=== PATIENT | female | born 1970 | race Caucasian/White ===

== ENCOUNTER 2016-07-13 22:03 | Emergency (ER) | payer BC ==
[2016-07-13] MEDS ORDERED: MORPHINE SULFATE 4 MG/ML SYRINGE IV STA (23:38)
[2016-07-13] MEDS ORDERED: KETOROLAC 30 MG/ML 1 ML VIAL IVP STA (23:38)
[2016-07-13] MEDS ORDERED: SODIUM CHLORIDE 0.9% 1,000 ML IV STA (23:38)
[2016-07-13] MEDS ORDERED: ONDANSETRON 4 MG/2 ML VIAL IVP STA (23:38)
--- NOTE | 2016-07-13 23:44 | ED ---
General Adult HPI - General Chief complaint: Back Pain/Injury Stated complaint: Rt Flank pain Time Seen by Provider: 07/13/16 23:24 Source: patient, RN notes reviewed Mode of arrival: ambulatory Limitations: no limitations - History of Present Illness Initial comments: 45-year-old female presents emergency Department chief complaint right flank pain. Patient patient states that it was sudden onset of pain. She states she did have a slight twinge right before. She states she was driving when it started. Patient states she's nausea no vomiting no diarrhea no constipation. Denies any dysuria or hematuria. Patient had no prior surgeries and denies any history kidney stones. Denies any chance pertinency. Denies chest pain or shortness breath. She states nothing seems to make it feel better or worse. Patient offers no other complaints at this time. Patient has NO KNOWN DRUG ALLERGIES. - Related Data Home Medications Medication Instructions Recorded Confirmed Levothyroxine Sodium [Synthroid] 150 mcg PO 07/13/16 Pravastatin Sodium [Pravachol] 80 mg PO DAILY 07/13/16 07/13/16 Previous Rx's Medication Instructions Recorded Cyclobenzaprine [Flexeril] 5 mg PO TID PRN #15 tablet 07/14/16 Hydrocodone/Acetaminophen [[place] 1 tab PO Q6HR PRN #15 tab 07/14/16 5-325] Allergies Allergy/AdvReac Type Severity Reaction Status Date / Time No Known Allergies Allergy Verified 07/13/16 22:40 Review of Systems ROS Statement: Those systems with pertinent positive or pertinent negative responses have been documented in the HPI. ROS Other: All systems not noted in ROS Statement are negative. Past Medical History Past Medical History: Thyroid Disorder History of Any Multi-Drug Resistant Organisms: None Reported Additional Past Surgical History / Comment(s): (L) breast biopsy x 2. Past Psychological History: No Psychological Hx Reported Smoking Status: Never smoker Past Alcohol Use History: None Reported Past Drug Use History: None Reported General Exam Limitations: no limitations General appearance: alert, in no apparent distress Head exam: Present: atraumatic, normocephalic, normal inspection Respiratory exam: Present: normal lung sounds bilaterally. Absent: respiratory distress, wheezes, rales, rhonchi, stridor Cardiovascular Exam: Present: regular rate, normal rhythm, normal heart sounds. Absent: systolic murmur, diastolic murmur, rubs, gallop, clicks GI/Abdominal exam: Present: soft, normal bowel sounds. Absent: distended, tenderness, guarding, rebound, rigid Back exam: Present: full ROM, tenderness (Mild tenderness mid back right side), CVA tenderness (R) (Mild). Absent: paraspinal tenderness, vertebral tenderness Neurological exam: Present: alert, oriented X3, CN II-XII intact Skin exam: Present: warm, dry, intact, normal color. Absent: rash Course Vital Signs 07/13/16 22:35 Temperature 99.2 F Pulse Rate 87 Respiratory 16 Rate Blood Pressure 132/91 O2 Sat by Pulse 99 Oximetry Medical Decision Making - Medical Decision Making 45-year-old female presented for right back, right flank pain. Patient's CT does not show an acute abnormality. Patient lab with normal. Patient does have hematuria most likely related to her menstrual cycle. Patient be discharged at this time. Her pain is related to muscle skeletal pain. - Lab Data Result diagrams: 07/14/16 00:01 07/14/16 00:01 Lab Results 07/14/16 07/14/16 07/14/16 Range/Units 00:01 00:01 00:01 WBC 10.9 H (3.8-10.6) k/uL RBC 4.50 (3.80-5.40) m/uL Hgb 13.7 (11.4-16.0) gm/dL Hct 41.6 (34.0-46.0) % MCV 92.4 (80.0-100.0) fL MCH 30.5 (25.0-35.0) pg MCHC 33.0 (31.0-37.0) g/dL RDW 12.5 (11.5-15.5) % Plt Count 186 (150-450) k/uL Neutrophils % 77 % Lymphocytes % 15 % Monocytes % 5 % Eosinophils % 2 % Basophils % 1 % Neutrophils # 8.4 H (1.3-7.7) k/uL Lymphocytes # 1.6 (1.0-4.8) k/uL Monocytes # 0.6 (0-1.0) k/uL Eosinophils # 0.2 (0-0.7) k/uL Basophils # 0.1 (0-0.2) k/uL Sodium 144 (137-145) mmol/L Potassium 4.0 (3.5-5.1) mmol/L Chloride 106 (98-107) mmol/L Carbon Dioxide 26 (22-30) mmol/L Anion Gap 12 mmol/L BUN 16 (7-17) mg/dL Creatinine 0.70 (0.52-1.04) mg/dL Est GFR (MDRD) Af Amer >60 (>60 ml/min/1.73 sqM) Est GFR (MDRD) Non-Af >60 (>60 ml/min/1.73 sqM) Glucose 111 H (74-99) mg/dL Calcium 9.8 (8.4-10.2) mg/dL Total Bilirubin 0.3 (0.2-1.3) mg/dL AST 21 (14-36) U/L ALT 29 (9-52) U/L Alkaline Phosphatase 82 (38-126) U/L Troponin I (0.000-0.034) ng/mL Total Protein 7.0 (6.3-8.2) g/dL Albumin 4.3 (3.5-5.0) g/dL Amylase 57 (30-110) U/L Lipase 142 (23-300) U/L Urine Color Urine Appearance (Clear) Urine pH (5.0-8.0) Ur Specific Iron (1.001-1.035) Urine Protein (Negative) Urine Glucose (UA) (Negative) Urine Ketones (Negative) Urine Blood (Negative) Urine Nitrate (Negative) Urine Bilirubin (Negative) Urine Urobilinogen (<2.0) mg/dL Ur Leukocyte Esterase (Negative) Urine RBC (0-5) /hpf Urine WBC (0-5) /hpf Ur Squamous Epith Cells (0-4) /hpf Urine Bacteria (None) /hpf Urine Mucus (None) /hpf Urine HCG, Qual Not Detected (Not Detectd) 07/14/16 07/14/16 Range/Units 00:01 00:01 WBC (3.8-10.6) k/uL RBC (3.80-5.40) m/uL Hgb (11.4-16.0) gm/dL Hct (34.0-46.0) % MCV (80.0-100.0) fL MCH (25.0-35.0) pg MCHC (31.0-37.0) g/dL RDW (11.5-15.5) % Plt Count (150-450) k/uL Neutrophils % % Lymphocytes % % Monocytes % % Eosinophils % % Basophils % % Neutrophils # (1.3-7.7) k/uL Lymphocytes # (1.0-4.8) k/uL Monocytes # (0-1.0) k/uL Eosinophils # (0-0.7) k/uL Basophils # (0-0.2) k/uL Sodium (137-145) mmol/L Potassium (3.5-5.1) mmol/L Chloride (98-107) mmol/L Carbon Dioxide (22-30) mmol/L Anion Gap mmol/L BUN (7-17) mg/dL Creatinine (0.52-1.04) mg/dL Est GFR (MDRD) Af Amer (>60 ml/min/1.73 sqM) Est GFR (MDRD) Non-Af (>60 ml/min/1.73 sqM) Glucose (74-99) mg/dL Calcium (8.4-10.2) mg/dL Total Bilirubin (0.2-1.3) mg/dL AST (14-36) U/L ALT (9-52) U/L Alkaline Phosphatase (38-126) U/L Troponin I <0.012 (0.000-0.034) ng/mL Total Protein (6.3-8.2) g/dL Albumin (3.5-5.0) g/dL Amylase (30-110) U/L Lipase (23-300) U/L Urine Color Yellow Urine Appearance Cloudy H (Clear) Urine pH 5.5 (5.0-8.0) Ur Specific Iron 1.020 (1.001-1.035) Urine Protein Trace H (Negative) Urine Glucose (UA) Negative (Negative) Urine Ketones Negative (Negative) Urine Blood Large H (Negative) Urine Nitrate Negative (Negative) Urine Bilirubin Negative (Negative) Urine Urobilinogen <2.0 (<2.0) mg/dL Ur Leukocyte Esterase Moderate H (Negative) Urine RBC >182 H (0-5) /hpf Urine WBC 34 H (0-5) /hpf Ur Squamous Epith Cells 5 H (0-4) /hpf Urine Bacteria Rare H (None) /hpf Urine Mucus Rare H (None) /hpf Urine HCG, Qual (Not Detectd) Disposition Clinical Impression: Right flank pain Disposition: HOME SELF-CARE Condition: Stable Instructions: Flank Pain (ED) Additional Instructions: Please return to the Emergency Department if symptoms worsen or any other concerns. Prescriptions: Cyclobenzaprine [Flexeril] 5 mg PO TID PRN #15 tablet PRN Reason: Muscle Spasm Hydrocodone/Acetaminophen [[place] 5-325] 1 tab PO Q6HR PRN #15 tab PRN Reason: Pain Time of Disposition: 01:37
[2016-07-14 00:15] LABS: Basophils # (A) 0.1 k/uL (0-0.2); Basophils % (A) 1 %; CH 31.2; CHCM 33.9; Eosinophils # (A) 0.2 k/uL (0-0.7); Eosinophils % (A) 2 %; HCT 41.6 % (34.0-46.0); HDW 2.38; HGB 13.7 gm/dL (11.4-16.0); Luc # (Auto) 0.07; Luc % (Auto) 1; Lymphocytes # (A) 1.6 k/uL (1.0-4.8); Lymphocytes % (A) 15 %; MCH 30.5 pg (25.0-35.0); MCV 92.4 fL (80.0-100.0); Mean Platelet Volume 9.1; Monocytes # (A) 0.6 k/uL (0-1.0); Monocytes % (A) 5 %; Neutrophils # (A) 8.4 k/uL (1.3-7.7); Neutrophils % (A) 77 %; RDW 12.5 % (11.5-15.5); WBC 10.9 k/uL (3.8-10.6); WBC (Perox) 10.86
[2016-07-14 00:21] LABS: Appearance,Urine Cloudy (Clear); Bacteria,Urine Rare /hpf; Bilirubin,Urine Negative (Negative); Glucose,Urine (UA) Negative (Negative); Ketones,Urine Negative (Negative); Leukocyte Esterase,Urine Moderate (Negative); Mucus,Urine Rare /hpf; Nitrite,Urine Negative (Negative); PH, Urine 5.5 (5.0-8.0); Particle Count 8506; Protein,Urine Trace (Negative); RBC,Urine >182 /hpf (0-5); Squamous Epithelial Cell,Urine 5 /hpf (0-4); UA Billing (MACRO vs. MICRO) MICRO; Urobilinogen,Urine <2.0 mg/dL (<2.0); WBC,Urine 34 /hpf (0-5)
[2016-07-14 00:24] LABS: ALT 29 U/L (9-52); AST 21 U/L (14-36); Alkaline Phosphatase 82 U/L (38-126); Amylase 57 U/L (30-110); Anion Gap 12 mmol/L; Blood Urea Nitrogen 16 mg/dL (7-17); Calcium 9.8 mg/dL (8.4-10.2); Carbon Dioxide 26 mmol/L (22-30); Chloride 106 mmol/L (98-107); Glucose 111 mg/dL (74-99); Non-African American GFR(MDRD) >60 (>60 ml/min/1.73 sqM); Sodium 144 mmol/L (137-145); Total Bilirubin 0.3 mg/dL (0.2-1.3)
--- NOTE | 2016-07-14 00:36 | XR ---
EXAMINATION TYPE: XR KUB DATE OF EXAM: 07/14/2016 12:30 AM COMPARISON: NONE HISTORY: Right flank pain TECHNIQUE: 2 views FINDINGS: Bowel gas pattern is normal. There is no sign of intestinal obstruction or pneumoperitoneum . Fecal pattern is normal. There are no pathologic calcifications over the kidneys. Bony structures a re intact. IMPRESSION: Nonacute abdomen.
--- NOTE | 2016-07-14 01:27 | CT ---
EXAMINATION TYPE: CT abdomen pelvis wo con DATE OF EXAM: 07/14/2016 12:57 AM COMPARISON: NONE HISTORY: right flank pain CT DLP: 446.30 mGycm Automated exposure control for dose reduction was used. TECHNIQUE: Helical acquisition of images was performed from the lung bases through the pelvis. FINDINGS: Lung bases are clear of consolidation. There is no pleural effusion. Heart size is normal. Liver appears normal. There are small calcified splenic granulomata. There is no sign of a pancreatic mass. Gallbladder appears normal. There is no adrenal mass. Kidneys have normal size. There is no re troperitoneal adenopathy. Ureters are not dilated. There is no hydronephrosis. Appendix appears trace l. I see no intestinal wall thickening. There are no dilated loops. Bladder distends smoothly. There is no sign of a pelvic mass. There is no ascites. There are a few diverticula in the transverse colon . IMPRESSION: NO RENAL STONE OR OBSTRUCTION. NORMAL APPENDIX. MINIMAL COLONIC DIVERTICULOSIS. NO SIGN OF ACUTE ABDO MEN AND PELVIS.
[2016-07-14 02:15] VITALS: BP 109/65; PULSE 72; RESP 18; TEMP 98.2
== END 2016-07-14 02:15 | disposition home or self-care (01) ==
LOC: EC 22:03
DX: R10.9 Unspecified abdominal pain (principal); E07.9 Disorder of thyroid, unspecified; Z79.899 Other long term (current) drug therapy
CPT/HCPCS: 99284; 96374; 96375 ×2; 96361; 36415; 93005; 80053; 82150; 83690; 84484; 85025; 81001; 81025; 74000; 74176; J2270; J2405; J1885

== ENCOUNTER 2016-07-14 19:20 | Inpatient (IN) | payer BC ==
--- NOTE | 2016-07-14 20:18 | ED ---
General Adult HPI <Cristian Pineda - Last Filed: 07/15/16 00:30> - General Source: patient, RN notes reviewed Mode of arrival: ambulatory Limitations: no limitations <Mirna Miranda - Last Filed: 07/15/16 01:28> - General Chief complaint: Abdominal Pain Stated complaint: Rt Flank Pain/revisit Time Seen by Provider: 07/14/16 20:03 - History of Present Illness Initial comments: 45 year old female presents with quadrant pain and shoulder pain 2 days. Patient states this started suddenly at 9 PM last night. Patient states she is treated in the [facility] yesterday for this and was diagnosed with muscle pain. Patient denies any vomiting or diarrhea but admits to some mild nausea. Patient complains of diminished appetite. Patient states the pain is worse with taking a deep breath. Patient states pain is worse with laying flat. Patient states the pain is so bad that she can hardly walk. Patient denies any past surgeries. Patient has been taking Osp[place] for pain but this has not helped. Patient denies any hematochezia, breath, hematemesis or constipation. Patient is currently on her menstrual cycle. Patient states nothing makes the pain better.Patient denies any recent fever, chills, shortness breath, chest pain, back pain, numbness, tingling, hematuria, headache, or visual changes, or any other complaints. (Mirna Miranda) - Related Data Home Medications Medication Instructions Recorded Confirmed Levothyroxine Sodium [Synthroid] 150 mcg PO DAILY 07/13/16 07/14/16 Pravastatin Sodium [Pravachol] 80 mg PO HS 07/13/16 07/14/16 Previous Rx's Medication Instructions Recorded Cyclobenzaprine [Flexeril] 5 mg PO TID PRN #15 tablet 07/14/16 Hydrocodone/Acetaminophen [[place] 1 tab PO Q6HR PRN #15 tab 07/14/16 5-325] Allergies Allergy/AdvReac Type Severity Reaction Status Date / Time No Known Allergies Allergy Verified 07/14/16 19:58 Review of Systems ROS Other: All systems not noted in ROS Statement are negative. <Cristian Pineda - Last Filed: 07/15/16 00:30> ROS Other: All systems not noted in ROS Statement are negative. <Mirna Miranda - Last Filed: 01/16/17 01:28> ROS Statement: Those systems with pertinent positive or pertinent negative responses have been documented in the HPI. Past Medical History Past Medical History: Thyroid Disorder History of Any Multi-Drug Resistant Organisms: None Reported Additional Past Surgical History / Comment(s): (L) breast biopsy x 2. Past Psychological History: No Psychological Hx Reported Smoking Status: Never smoker Past Alcohol Use History: None Reported Past Drug Use History: None Reported <Mirna Miranda - Last Filed: 07/15/16 01:28> General Exam <Cristian Pineda - Last Filed: 07/15/16 00:30> Limitations: no limitations <Mirna Miranda - Last Filed: 07/15/16 01:28> - General Exam Comments Initial Comments: General: The patient is awake and alert, in no distress, and does not appear acutely ill. Eye: Pupils are equal, round and reactive to light, extra-ocular movements are intact. No nystagmus. There is normal conjunctiva bilaterally. No signs of icterus. Ears: TMs pearly with intact cone light bilaterally. Nose: Turbinates pink and moist. Mouth and throat: There are moist mucous membranes and no oral lesions. Neck: The neck is supple, there is no tenderness or JVD. Cardiovascular: There is a regular rate and rhythm. No murmur, rub or gallop is appreciated. Respiratory: Lungs are clear to auscultation, respirations are non-labored, breath sounds are equal. No wheezes, stridor, rales, or rhonchi. Gastrointestinal: There is tender to palpation of the right upper quadrant, Soft , non-distended, abdomen without masses or organomegaly noted. There is no rebound or guarding present. No CVA tenderness. Bowel sounds are unremarkable. Musculoskeletal: There is serous with patient over the posterior and lateral aspects of the right side ribs, Normal ROM, Strength 5/5. Sensation intact. Radial pulses equal bilaterally 2+. Neurological: A&O x 3. CN II-XII intact, There are no obvious motor or sensory deficits. Coordination appears grossly intact. Speech is normal. Skin: Skin is warm and dry and no rashes or lesions are noted. Psychiatric: Cooperative, appropriate mood & affect, normal judgment. (Mirna Miranda) Course <Cristian Pineda - Last Filed: 07/15/16 00:30> <Mirna Miranda - Last Filed: 07/15/16 01:28> Vital Signs 07/14/16 07/14/16 07/14/16 19:29 22:00 23:31 Temperature 101.3 F H 100.6 F H 100.8 F H Pulse Rate 105 H 81 80 Respiratory 20 18 18 Rate Blood Pressure 124/82 118/64 125/59 O2 Sat by Pulse 94 L 93 L 94 L Oximetry 07/15/16 01:04 Temperature 98.3 F Pulse Rate 86 Respiratory 16 Rate Blood Pressure 150/77 O2 Sat by Pulse 98 Oximetry - Reevaluation(s) Reevaluation #1: 07/15/16 00:30 Patient reexamined and resting comfortably in bed. Patient is mild right upper quadrant tenderness to palpation. Patient has developed fever since last visit. Ultrasound with sludge. Case discussed with Dr. Reyes, who will admit for Dr. Esteves (Cristian Pineda) Medical Decision Making - Lab Data Result diagrams: 07/14/16 20:50 07/14/16 20:50 <Cristian Pineda - Last Filed: 07/15/16 00:30> - Lab Data Result diagrams: 07/14/16 20:50 07/14/16 20:50 <Mirna Miranda - Last Filed: 07/15/16 01:28> - Medical Decision Making This is a 45 year old female presents with right-sided back pain since 9 PM last night. On physical exam there is sinus with palpation of the right upper quadrant into the right side ribs. Chest x-ray was done and reviewed showing: Right basilar atelectasis. No gross heart failure. No pneumothorax seen. I see no rib fracture. Labs were done and reviewed. An ultrasound of the gallbladder was done and reviewed showing: Gallbladders arch. No gallstones or dilated ducts. Possible sludge noted. Reported by Dr. Mayberry. Discussed imaging and lab results with patient. Discussed case with attending physician Dr. Pineda who contacted Dr. Reyes. Patient will be admitted as an inpatient. (Mirna Miranda) - Lab Data Lab Results 07/14/16 07/14/16 07/14/16 Range/Units 20:50 20:50 20:50 WBC 10.9 H (3.8-10.6) k/uL RBC 4.21 (3.80-5.40) m/uL Hgb 13.0 (11.4-16.0) gm/dL Hct 39.3 (34.0-46.0) % MCV 93.2 (80.0-100.0) fL MCH 30.8 (25.0-35.0) pg MCHC 33.0 (31.0-37.0) g/dL RDW 12.5 (11.5-15.5) % Plt Count 159 (150-450) k/uL Neutrophils % 83 % Lymphocytes % 10 % Monocytes % 5 % Eosinophils % 0 % Basophils % 0 % Neutrophils # 9.1 H (1.3-7.7) k/uL Lymphocytes # 1.1 (1.0-4.8) k/uL Monocytes # 0.6 (0-1.0) k/uL Eosinophils # 0.1 (0-0.7) k/uL Basophils # 0.0 (0-0.2) k/uL ESR 36 H (0-20) mm/hr PT (9.0-12.0) sec INR (<1.1) APTT (22.0-30.0) sec D-Dimer (<0.60) mg/L FEU Sodium 139 (137-145) mmol/L Potassium 4.1 (3.5-5.1) mmol/L Chloride 104 (98-107) mmol/L Carbon Dioxide 25 (22-30) mmol/L Anion Gap 10 mmol/L BUN 11 (7-17) mg/dL Creatinine 0.80 (0.52-1.04) mg/dL Est GFR (MDRD) Af Amer >60 (>60 ml/min/1.73 sqM) Est GFR (MDRD) Non-Af >60 (>60 ml/min/1.73 sqM) Glucose 108 H (74-99) mg/dL Plasma Lactic Acid Manav 0.8 (0.7-2.0) mmol/L Calcium 9.1 (8.4-10.2) mg/dL Total Bilirubin 0.8 (0.2-1.3) mg/dL AST 20 (14-36) U/L ALT 30 (9-52) U/L Alkaline Phosphatase 84 (38-126) U/L Total Protein 6.8 (6.3-8.2) g/dL Albumin 4.2 (3.5-5.0) g/dL Amylase 31 (30-110) U/L Lipase 41 (23-300) U/L 07/14/16 07/14/16 Range/Units 20:50 20:50 WBC (3.8-10.6) k/uL RBC (3.80-5.40) m/uL Hgb (11.4-16.0) gm/dL Hct (34.0-46.0) % MCV (80.0-100.0) fL MCH (25.0-35.0) pg MCHC (31.0-37.0) g/dL RDW (11.5-15.5) % Plt Count (150-450) k/uL Neutrophils % % Lymphocytes % % Monocytes % % Eosinophils % % Basophils % % Neutrophils # (1.3-7.7) k/uL Lymphocytes # (1.0-4.8) k/uL Monocytes # (0-1.0) k/uL Eosinophils # (0-0.7) k/uL Basophils # (0-0.2) k/uL ESR (0-20) mm/hr PT 9.9 (9.0-12.0) sec INR 1.0 (<1.1) APTT 22.4 (22.0-30.0) sec D-Dimer 0.51 (<0.60) mg/L FEU Sodium (137-145) mmol/L Potassium (3.5-5.1) mmol/L Chloride (98-107) mmol/L Carbon Dioxide (22-30) mmol/L Anion Gap mmol/L BUN (7-17) mg/dL Creatinine (0.52-1.04) mg/dL Est GFR (MDRD) Af Amer (>60 ml/min/1.73 sqM) Est GFR (MDRD) Non-Af (>60 ml/min/1.73 sqM) Glucose (74-99) mg/dL Plasma Lactic Acid Manav (0.7-2.0) mmol/L Calcium (8.4-10.2) mg/dL Total Bilirubin (0.2-1.3) mg/dL AST (14-36) U/L ALT (9-52) U/L Alkaline Phosphatase (38-126) U/L Total Protein (6.3-8.2) g/dL Albumin (3.5-5.0) g/dL Amylase (30-110) U/L Lipase (23-300) U/L Disposition <Cristian Pineda - Last Filed: 07/15/16 00:30> Decision Time: 01:27 <Mirna Miranda - Last Filed: 07/15/16 01:28> Clinical Impression: Cholecystitis Disposition: ADMITTED IP TO THIS [facility] Referrals: Dakota Ocasio DO [Primary Care Provider] - 1-2 days
[2016-07-14] MEDS ORDERED: SODIUM CHLORIDE 0.9% 1,000 ML IV ONE (20:28)
[2016-07-14] MEDS ORDERED: HYDROmorphone 1 MG/ML 1 ML SYRINGE IVP STA ×2 (20:28→21:19)
[2016-07-14] MEDS ORDERED: ONDANSETRON 4 MG/2 ML VIAL IVP STA (20:59)
[2016-07-14 21:15] LABS: Basophils % (A) 0 %; CH 31.4; CHCM 33.8; Eosinophils # (A) 0.1 k/uL (0-0.7); Eosinophils % (A) 0 %; HCT 39.3 % (34.0-46.0); HDW 2.35; Luc # (Auto) 0.08; Luc % (Auto) 1; Lymphocytes # (A) 1.1 k/uL (1.0-4.8); Lymphocytes % (A) 10 %; MCH 30.8 pg (25.0-35.0); MCV 93.2 fL (80.0-100.0); Mean Platelet Volume 8.8; Monocytes # (A) 0.6 k/uL (0-1.0); Monocytes % (A) 5 %; Neutrophils # (A) 9.1 k/uL (1.3-7.7); Neutrophils % (A) 83 %; RBC 4.21 m/uL (3.80-5.40); RDW 12.5 % (11.5-15.5); WBC 10.9 k/uL (3.8-10.6); WBC (Perox) 11.28
--- NOTE | 2016-07-14 21:21 | XR ---
EXAMINATION TYPE: XR chest 2V DATE OF EXAM: 07/14/2016 9:07 PM COMPARISON: NONE HISTORY: Rib pain TECHNIQUE: Frontal and lateral views of the chest are obtained. FINDINGS: There is elevated right diaphragm there is linear density at the right lung base. There is no heart failure. Heart is probably enlarged. Bony thorax is intact. IMPRESSION: Right basilar atelectasis. No gross heart failure. No pneumothorax seen. I see no rib fr acture.
[2016-07-14 21:28] LABS: Partial Thromboplastin Time 22.4 sec (22.0-30.0); Prothrombin Time 9.9 sec (9.0-12.0)
[2016-07-14 21:39] LABS: ALT 30 U/L (9-52); AST 20 U/L (14-36); Alkaline Phosphatase 84 U/L (38-126); Amylase 31 U/L (30-110); Anion Gap 10 mmol/L; Blood Urea Nitrogen 11 mg/dL (7-17); Calcium 9.1 mg/dL (8.4-10.2); Carbon Dioxide 25 mmol/L (22-30); Chloride 104 mmol/L (98-107); Glucose 108 mg/dL (74-99); Non-African American GFR(MDRD) >60 (>60 ml/min/1.73 sqM); Potassium 4.1 mmol/L (3.5-5.1); Sodium 139 mmol/L (137-145); Total Bilirubin 0.8 mg/dL (0.2-1.3); Total Protein 6.8 g/dL (6.3-8.2)
[2016-07-14 22:01] LABS: Erythrocyte Sedimentation Rate 36 mm/hr (0-20)
--- NOTE | 2016-07-15 00:20 | US ---
EXAMINATION TYPE: US gallbladder DATE OF EXAM: 07/15/2016 12:02 AM COMPARISON: NONE CLINICAL HISTORY: US. Right flank pain EXAM MEASUREMENTS: Liver Length: 14.4cm Gallbladder Wall: 0.3cm CBD: 0.4cm Right Kidney: 10.2 x 4.3 x 3.9cm ANATOMY: TECHNOLOGIST IMPRESSION: *Extreme technical limitations due to large amount of overlying bowel dewayne nt Pancreas: Obscured by overlying bowel gas Liver: visualized portions appear wnl, best visualized intercostally Gallbladder: possible sludge noted Evidence for sonographic Thomson's sign: No CBD: appears wnl Right Kidney: no evidence of hydronephrosis IMPRESSION: Gallbladder is large. No gallstones or dilated ducts.
[2016-07-15] MEDS ORDERED: NALOXONE 0.4 MG/ML 1 ML VIAL IV PRN (01:21)
[2016-07-15] MEDS ORDERED: ONDANSETRON 4 MG/2 ML VIAL IVP PRN (01:21)
[2016-07-15] MEDS ORDERED: IBUPROFEN 400 MG TAB PO PRN (01:21)
[2016-07-15] MEDS ORDERED: ACETAMINOPHEN TAB 325 MG TAB PO PRN (01:21)
[2016-07-15] MEDS ORDERED: AMPICILLIN-SULBACTAM 3 GM in SODIUM CHLORIDE 0.9% 100 ML IVPB STA (01:23)
[2016-07-15] MEDS ORDERED: HYDROmorphone 1 MG/ML 1 ML SYRINGE IVP STA (01:26)
[2016-07-15] MEDS ORDERED: SODIUM CHLORIDE 0.9% 1,000 ML IV SCH (01:30)
[2016-07-15 02:59] VITALS: BMI 32.2
[2016-07-15] MEDS: HYDROmorphone 1 MG/ML 1 ML SYRINGE IV PRN ×3 (04:34→14:24)
[2016-07-15] MEDS ORDERED: ACETAMINOPHEN IV (For NPO) 1,000 MG in EMPTY BAG 1 BAG IVPB SCH (06:00)
[2016-07-15] MEDS: LEVOTHYROXINE 100 MCG TAB PO SCH (06:27)
[2016-07-15] MEDS: LEVOTHYROXINE 50 MCG TAB PO SCH (06:27)
[2016-07-15 08:28] LABS: Basophils % (A) 0 %; CHCM 32.5; Eosinophils % (A) 0 %; HCT 39.1 % (34.0-46.0); HDW 2.34; HGB 12.8 gm/dL (11.4-16.0); Luc % (Auto) 1; Lymphocytes # (A) 1.4 k/uL (1.0-4.8); Lymphocytes % (A) 14 %; MCH 31.4 pg (25.0-35.0); MCHC 32.8 g/dL (31.0-37.0); MCV 95.7 fL (80.0-100.0); Mean Platelet Volume 9.1; Monocytes # (A) 0.5 k/uL (0-1.0); Monocytes % (A) 5 %; Neutrophils # (A) 8.1 k/uL (1.3-7.7); Neutrophils % (A) 79 %; RBC 4.09 m/uL (3.80-5.40); RDW 12.6 % (11.5-15.5); WBC 10.3 k/uL (3.8-10.6); WBC (Perox) 10.71
[2016-07-15 08:57] LABS: ALT 30 U/L (9-52); AST 18 U/L (14-36); Alkaline Phosphatase 83 U/L (38-126); Anion Gap 11 mmol/L; Blood Urea Nitrogen 10 mg/dL (7-17); Calcium 8.7 mg/dL (8.4-10.2); Carbon Dioxide 22 mmol/L (22-30); Chloride 107 mmol/L (98-107); Glucose 106 mg/dL (74-99); Non-African American GFR(MDRD) >60 (>60 ml/min/1.73 sqM); Potassium 3.9 mmol/L (3.5-5.1); Sodium 140 mmol/L (137-145); Total Protein 6.8 g/dL (6.3-8.2)
--- NOTE | 2016-07-15 10:03 | P.GSHP ---
History of Present Illness H&P Date: 07/15/16 Chief Complaint: Right subcostal apin 45 yrs old female presentwd to ED with right subcosatl pain radiating to back for days. Sudden onset pain, not related to food. No urinary complaints. No fever, chills , rigors. Loss of appetite, nausea but no vomiting . She went to the ED on Friday and was discharged home. She returns to ED on Friday with similar episode of right subcostal pain radiating to her flank - Review of Systems Comment: Constitutional: Denies fever, weight loss or loss of appetite HEENT: No difficulty in vision or hearing. Denies dysphagia. Cardiovascular: Denies chest pain, palpitations, dizziness, shortness of breath. Respiratory: Denies cough or shortness of breath Gastrointestinal: As stated in history of present illness. Integumentary: No rashes or skin ulcers Genitourinary: No urinary incontinence, hematuria or dysuria Neurologic: No seizures, denies weakness in upper or lower extremities Past Medical History Past Medical History: Hyperlipidemia, Thyroid Disorder History of Any Multi-Drug Resistant Organisms: None Reported Additional Past Surgical History / Comment(s): (L) breast biopsy x 2. 15 years ago Past Anesthesia/Blood Transfusion Reactions: No Reported Reaction Past Psychological History: No Psychological Hx Reported Smoking Status: Former smoker Past Alcohol Use History: Rare Additional Past Alcohol Use History / Comment(s): onc or two drinks per year Past Drug Use History: None Reported - Past Family History Mother Family Medical History: Diabetes Mellitus, Hypertension, Pneumonia, Thyroid Disorder Additional Family Medical History / Comment(s): depression Father Family Medical History: Diabetes Mellitus Additional Family Medical History / Comment(s): open heart, heart attack, diverticulitis Medications and Allergies Home Medications Medication Instructions Recorded Confirmed Type Levothyroxine Sodium [Synthroid] 150 mcg PO DAILY 07/13/16 07/15/16 History Pravastatin Sodium [Pravachol] 80 mg PO HS 07/13/16 07/15/16 History ALPRAZolam [Xanax] 0.25 mg PO DAILY PRN 07/15/16 07/15/16 History Allergies Allergy/AdvReac Type Severity Reaction Status Date / Time No Known Allergies Allergy Verified 07/14/16 19:58 Surgical - Exam Vital Signs Temp Pulse Resp BP Pulse Ox 101.3 F H 105 H 20 124/82 94 L 07/14/16 19:29 07/14/16 19:29 07/14/16 19:29 07/14/16 19:29 07/14/16 19:29 General: Patient is alert and oriented to time, place and person and cooperative with exam. HEENT: No pallor, no icterus, Chest: Bilateral equal breath sounds present. No wheezes, no crackles. Cardiovascular: Regular rate and rhythm. Abdomen: Soft, tenderness in RUQ. No definite peritonitis. Integumentary:No active ulcers or discharge. Neurologic: Cranial nerves II-XII intact. Strength upper and lower extremities 5/5. No focal neurologic deficits. Gait is normal. Psychiatric: No anxiety or psychosis. Results - Labs 07/15/16 08:12 07/15/16 08:12 Abnormal Lab Results - Last 24 Hours (Table) 07/15/16 07/15/16 Range/Units 08:12 08:12 Neutrophils # 8.1 H (1.3-7.7) k/uL Glucose 106 H (74-99) mg/dL Diabetes panel 07/15/16 Range/Units 08:12 Sodium 140 (137-145) mmol/L Potassium 3.9 (3.5-5.1) mmol/L Chloride 107 (98-107) mmol/L Carbon Dioxide 22 (22-30) mmol/L BUN 10 (7-17) mg/dL Creatinine 0.71 (0.52-1.04) mg/dL Glucose 106 H (74-99) mg/dL Calcium 8.7 (8.4-10.2) mg/dL AST 18 (14-36) U/L ALT 30 (9-52) U/L Alkaline Phosphatase 83 (38-126) U/L Total Protein 6.8 (6.3-8.2) g/dL Albumin 3.8 (3.5-5.0) g/dL Calcium panel 07/15/16 Range/Units 08:12 Calcium 8.7 (8.4-10.2) mg/dL Albumin 3.8 (3.5-5.0) g/dL Pituitary panel 07/15/16 Range/Units 08:12 Sodium 140 (137-145) mmol/L Potassium 3.9 (3.5-5.1) mmol/L Chloride 107 (98-107) mmol/L Carbon Dioxide 22 (22-30) mmol/L BUN 10 (7-17) mg/dL Creatinine 0.71 (0.52-1.04) mg/dL Glucose 106 H (74-99) mg/dL Calcium 8.7 (8.4-10.2) mg/dL Adrenal panel 07/15/16 Range/Units 08:12 Sodium 140 (137-145) mmol/L Potassium 3.9 (3.5-5.1) mmol/L Chloride 107 (98-107) mmol/L Carbon Dioxide 22 (22-30) mmol/L BUN 10 (7-17) mg/dL Creatinine 0.71 (0.52-1.04) mg/dL Glucose 106 H (74-99) mg/dL Calcium 8.7 (8.4-10.2) mg/dL Total Bilirubin 1.0 (0.2-1.3) mg/dL AST 18 (14-36) U/L ALT 30 (9-52) U/L Alkaline Phosphatase 83 (38-126) U/L Total Protein 6.8 (6.3-8.2) g/dL Albumin 3.8 (3.5-5.0) g/dL - Imaging CT scan - abdomen: image reviewed US - kidney/bladder: image reviewed (CT scan and US reviewed with Dr. Snyder. CT -normal. US - ? sludge/limited study) Assessment and Plan (1) Right upper quadrant abdominal pain Status: Acute (2) Hypothyroidism Status: Acute Plan: 1. 45 yr old female with acute onset right subcostal pain 2. US - no definite signs of stones or scute cholecystitis 3. CCK HIDA . If abnormal, proceed with lap karla possible open 4. CBC, LFTS within normal limits 5. GI and DVT prophylaxis
[2016-07-15] MEDS ORDERED: ceFAZolin 2 GM in SODIUM CHLORIDE 0.9% 100 ML IVPB ONE (10:07)
[2016-07-15] MEDS: AMPICILLIN-SULBACTAM 1.5 GM in SODIUM CHLORIDE 0.9% 50 ML IVPB SCH ×3 (11:10→23:20)
[2016-07-15] MEDS: HEPARIN SODIUM,PORCINE 5,000 UNIT/ML 1 ML VIAL SQ SCH ×2 (11:18→17:09)
--- NOTE | 2016-07-15 11:46 | NM ---
EXAMINATION TYPE: NM hepatobiliary w CCK DATE OF EXAM: 07/15/2016 11:06 AM COMPARISON: Ultrasound gallbladder 14 July 2016 HISTORY: Right upper quadrant pain TECHNIQUE: After the intravenous administration of 5.5 mCi Tc 99m Mebrofenin hepatobiliary scintigrap hy is performed. Immediate images post injection. FINDINGS: There is satisfactory initial accumulation of tracer by the liver. The gallbladder is visualized wit hin 10 minutes. The small bowel activity is noted within 8 minutes. At one hour CCK was administere d, patient was injected with 1.6 mcg of Kinevac, and gallbladder ejection fraction is calculated at 4 8 %, in the normal range. Therefore there is no scintigraphic evidence of cystic or common bile duct obstruction to suggest acute cholecystitis or gallbladder dyskinesia. IMPRESSION: Exam is within normal limits.
[2016-07-15] MEDS: ACETAMINOPHEN IV (For NPO) 1,000 MG in EMPTY BAG 1 BAG IVPB SCH ×3 (11:48→18:23)
[2016-07-15 12:39] LABS: Appearance,Urine Cloudy (Clear); Bilirubin,Urine Negative (Negative); Glucose,Urine (UA) Negative (Negative); Ketones,Urine 1+ (Negative); Leukocyte Esterase,Urine Negative (Negative); Mucus,Urine Moderate /hpf; Nitrite,Urine Negative (Negative); PH, Urine 5.5 (5.0-8.0); Particle Count 15386; Protein,Urine 1+ (Negative); RBC,Urine 113 /hpf (0-5); Specific Gravity,Urine 1.036 (1.001-1.035); Squamous Epithelial Cell,Urine 21 /hpf (0-4); UA Billing (MACRO vs. MICRO) MICRO; Urobilinogen,Urine <2.0 mg/dL (<2.0); WBC,Urine 8 /hpf (0-5)
[2016-07-15] MEDS: CYCLOBENZAPRINE 5 MG TAB PO PRN (15:20)
[2016-07-15] MEDS: SODIUM CHLORIDE 0.9% 1,000 ML IV SCH (16:37)
[2016-07-15] MEDS: PRAVASTATIN SODIUM 80 MG TAB PO SCH (21:18)
[2016-07-16] MEDS: HYDROcodone/APAP 5-325MG 1 EACH TAB PO PRN ×2 (00:14→04:13)
[2016-07-16] MEDS: HEPARIN SODIUM,PORCINE 5,000 UNIT/ML 1 ML VIAL SQ SCH ×3 (00:17→16:03)
[2016-07-16] MEDS: SODIUM CHLORIDE 0.9% 1,000 ML IV SCH ×2 (01:48→10:23)
[2016-07-16] MEDS: AMPICILLIN-SULBACTAM 1.5 GM in SODIUM CHLORIDE 0.9% 50 ML IVPB SCH ×3 (04:57→12:02)
[2016-07-16] MEDS: ACETAMINOPHEN IV (For NPO) 1,000 MG in EMPTY BAG 1 BAG IVPB SCH ×2 (05:23→11:13)
[2016-07-16 05:56] LABS: Basophils % (A) 0 %; CH 30.8; CHCM 32.4; Eosinophils # (A) 0.1 k/uL (0-0.7); Eosinophils % (A) 1 %; HCT 37.1 % (34.0-46.0); HDW 2.35; HGB 11.7 gm/dL (11.4-16.0); Luc # (Auto) 0.09; Luc % (Auto) 1; Lymphocytes # (A) 1.2 k/uL (1.0-4.8); Lymphocytes % (A) 13 %; MCH 30.1 pg (25.0-35.0); MCHC 31.4 g/dL (31.0-37.0); MCV 95.6 fL (80.0-100.0); Mean Platelet Volume 7.9; Monocytes # (A) 0.4 k/uL (0-1.0); Monocytes % (A) 5 %; Neutrophils # (A) 7.3 k/uL (1.3-7.7); Neutrophils % (A) 80 %; RBC 3.88 m/uL (3.80-5.40); RDW 12.3 % (11.5-15.5); WBC (Perox) 9.87
[2016-07-16 06:05] LABS: ALT 32 U/L (9-52); AST 18 U/L (14-36); Alkaline Phosphatase 85 U/L (38-126); Anion Gap 9 mmol/L; Blood Urea Nitrogen 9 mg/dL (7-17); Calcium 8.2 mg/dL (8.4-10.2); Carbon Dioxide 27 mmol/L (22-30); Chloride 105 mmol/L (98-107); Glucose 106 mg/dL (74-99); Non-African American GFR(MDRD) >60 (>60 ml/min/1.73 sqM); Potassium 3.7 mmol/L (3.5-5.1); Sodium 141 mmol/L (137-145); Total Bilirubin 0.6 mg/dL (0.2-1.3); Total Protein 5.7 g/dL (6.3-8.2)
[2016-07-16] MEDS: LEVOTHYROXINE 100 MCG TAB PO SCH (06:21)
[2016-07-16] MEDS: LEVOTHYROXINE 50 MCG TAB PO SCH (06:21)
[2016-07-16] MEDS: CYCLOBENZAPRINE 5 MG TAB PO PRN (08:30)
[2016-07-16] MEDS ORDERED: SCOPOLAMINE 1.5MG/72HR PATCH TRANSDERM SCH (10:30)
[2016-07-16] MEDS ORDERED: RX INFO: IV CONTRAST WAS GIVEN 1 EACH MISC MISCELLANE PRN (14:10)
--- NOTE | 2016-07-16 15:49 | P.PN ---
Subjective 45 show female ambulating in the room. Patient continues to report having right lateral chest wall discomfort. Patient states it hurts to take in a deep breath. There are dry crackles posterior at the bases. No cough noted. Did note patient's attempted maxed 100.8. Current temp is 98.1. Chest x-ray done on the show right basal atelectasis noted. Nursing reports patient is able to use the incentive spirometer particularly achieving 500 currently on 2 L sats are 93% Objective - Vital Signs Vital signs: Vital Signs Temp 98.1 F 07/16/16 11:15 Pulse 104 H 07/16/16 11:15 Resp 16 07/16/16 11:15 BP 120/73 07/16/16 11:15 Pulse Ox 93 L 07/16/16 11:15 Intake & Output 07/15/16 07/16/16 07/16/16 18:59 06:59 18:59 Intake Total 360 520 500 Balance 360 520 500 Intake: Oral 360 520 500 Other: Voiding Method Toilet # Voids 4 1 - Exam Physical exam 45-year-old female ambulating in the room reports having right lateral chest wall discomfort pleasant oriented 3 Lungs posterior dry crackles bilaterally at the bases not able to appreciate any wheezing no cough noted Heart S1-S2 audible and regular no murmur noted denying chest pain Abdomen soft nontender reports no nausea vomiting Extremities no edema noted no calf Tenderness - Labs CBC & Chem 7: 07/16/16 05:27 07/16/16 05:27 Labs: Abnormal Lab Results - Last 24 Hours (Table) 07/16/16 Range/Units 05:27 Glucose 106 H (74-99) mg/dL Calcium 8.2 L (8.4-10.2) mg/dL Total Protein 5.7 L (6.3-8.2) g/dL Albumin 3.3 L (3.5-5.0) g/dL Microbiology - Last 24 Hours (Table) 07/15/16 12:05 Urine Culture - Preliminary Urine,Clean Catch Assessment and Plan Plan: Impression Right lateral chest wall pain unclear etiology Present on admission right upper quadrant abdominal pain with a negative HIDA scan Hypothyroid on supplements Plan CAT scan chest rule out pulmonary emboli DVT and GI prophylaxis No surgical intervention warranted at this time the right upper quadrant abdominal pain IV hydration as ordered Encouraged the use of the incentive spirometer use every 1 hour while awake Continue aerosol bronchodilators as ordered Further recommendations pending will follow The above dictated assessment and findings were discussed with sang . Impression and the plan of care have been dictated as directed. Silvia Vega nurse practitioner acting as a scribe for dr domínguez
[2016-07-16] MEDS: KETOROLAC 30 MG/ML 1 ML VIAL IVP PRN ×2 (16:02→21:52)
--- NOTE | 2016-07-16 16:20 | CT ---
CT CHEST FOR PULMONARY EMBOLISM. EXAMINATION TYPE: CT angio chest DATE OF EXAM: 07/16/2016 3:17 PM INDICATION: Pt states of SOB. CT DLP: 316.3 mGycm, Automated exposure control for dose reduction was used. CONTRAST: Patient injected with 65 mL of Omnipaque 350. COMPARISON: NONE TECHNIQUE: CT of the chest is performed on a spiral scan at 2 mm thick sections. Study is performed with intravenous contrast timed for evaluation for pulmonary embolism. This will limit additional po rtions of the evaluation. 3-D MIP images reconstructed by the technologist are reviewed on the compu ter in the coronal and sagittal planes. FINDINGS: No persistent filling defects are evident to suggest an acute pulmonary embolism. No mediastinal or hilar adenopathy enlarged by CT criteria is evident. The ascending aorta diameter at the level of the main pulmonary artery is 3.3 cm. The main pulmonary artery diameter at the bifur cation is 2.8 cm. Patchy areas of pneumonitis at the apices. There is loculated effusion on the right. There is a right middle lobe consolidation. This could be atelectasis or pneumonia. Right lower lobe atelectasis is l ikely present. Consolidation is at the left base. Atelectasis should be considered. Underlying mass i s not excluded. Follow-up examinations are recommended. Limited CT section through the upper abdomen are unremarkable. IMPRESSIONS: 1. No acute pulmonary embolism. 2. Right middle and right lower lobe consolidations and a smaller left lower lobe consolidation. Sherif elate for atelectasis and pneumonia. Masses are not excluded. Follow-up is recommended.
[2016-07-16] MEDS: AZITHROMYCIN 500 MG TAB PO SCH (16:39)
[2016-07-16] MEDS: IPRATROPIUM-ALBUTEROL 3 ML NEB INHALATION SCH ×2 (17:17→20:45)
--- NOTE | 2016-07-16 17:27 | CONS ---
DATE OF CONSULTATION: REASON FOR CONSULTATION: Take over medical service. The patient is a 45-year-old female came in with right subcostal pain. Patient had a d-dimer on admission which was negative. Because of this, patient was admitted for possibly acute cholecystitis and surgical service and although the patient ultrasound is not improved significantly, because of which surgery obtained HIDA scan which was negative. Patient when she came in had fevers. Denied any flulike symptoms. Denied any dysuria. Denied any nausea, vomiting, abdominal pain. Denied any nausea, vomiting. Patient does have lower chest pain, pleuritic in nature associated with some shortness of breath. Denied any orthopnea, PND. Patient does have diffuse crackles of the right lung lobes and chest x-ray on admission is not impressive and patient has constant pleuritic pain about 7/10 in severity, nonradiating, the patient's pain is not associated with diaphoresis. It is a constant pain, because of which I am obtaining a CT scan of the chest to rule out pulmonary embolism or any pneumonic process. Patient may have pleurisy of the differential. REVIEW OF SYSTEMS: CONSTITUTIONAL: No fever, no malaise, no fatigue. HEENT: No recent visual problems or hearing problems. Denied any sore throat. CARDIOVASCULAR: As described in HPI. PULMONARY: As described in HPI. GASTROINTESTINAL: As described in HPI. NEUROLOGICAL: No headaches, no weakness, no numbness. HEMATOLOGICAL: Denies any bleeding or petechiae. GENITOURINARY: Denies any burning micturition, frequency, or urgency. MUSCULOSKELETAL/RHEUMATOLOGICAL: Denies any joint pain, swelling, or any muscle pain. ENDOCRINE: Denies any polyuria or polydipsia. The rest of the 14 point review of systems is negative. PAST MEDICAL HISTORY: Hyperlipidemia, hypothyroidism. SOCIAL HISTORY: Former smoker. Occasional alcohol use. Denied any drug abuse. FAMILY HISTORY: Mother had diabetes mellitus, hypertension, pneumonia, hypothyroidism. Father had diabetes mellitus and recent heart attack at 70 years of age, diverticulitis, Home medications include: 1. Levothyroxine. 2. Pravastatin. 3. Xanax. ALLERGIES: No known drug allergies. PHYSICAL EXAMINATION: VITAL SIGNS: Temperature 98.1, pulse of 104, respiratory rate of 16, blood pressure is 120/73. Saturating at 93% on 2 liters O2 by nasal cannula. GENERAL: The patient is alert and oriented x3, not in any acute distress. Well developed, well nourished. HEENT: Pupils are round and equally reacting to light. EOMI. No scleral icterus. No conjunctival pallor. Normocephalic, atraumatic. No pharyngeal erythema. No thyromegaly. CARDIOVASCULAR: S1 and S2 present. No murmurs, rubs, or gallops. PULMONARY: Patient does have diffuse crackles particularly in the right lower lung peck posteriorly and there is suspicious bronchophony and egophony in the right lower lung peck. ABDOMEN: Soft, nontender, nondistended, normoactive bowel sounds. No palpable organomegaly. MUSCULOSKELETAL: No joint swelling or deformity. EXTREMITIES: No cyanosis, clubbing, or pedal edema. NEUROLOGICAL: Gross neurological examination did not reveal any focal deficits. SKIN: No rashes. LABORATORY DATA: CBC, CMP are abnormal for elevated WBC count when she came to the hospital. Patient was febrile when she came in. ASSESSMENT AND PLAN: 1. Right-sided pleuritic chest pain. Patient does not appear to have cholecystitis clinically or radiologically. Patient's differential for chest pain with fever include: Pneumonia parapneumonic effusion and pleurisy and other differential being pulmonary embolism although her d-dimer is negative. We will order a CT of the chest to rule out any pulmonary embolism or any pneumonic process that I can see. Although patient does not have any significant cough. 2. Hyperthyroidism. 3. Hyperlipidemia for which I will go ahead and continue her home medications. 4. Patient does have diffuse crackles. Patient has questionable bronchophony egophony on exam which I failed to dictate earlier.
[2016-07-16] MEDS: DOCUSATE 100 MG CAP PO SCH (20:56)
[2016-07-16] MEDS: PRAVASTATIN SODIUM 80 MG TAB PO SCH (20:56)
[2016-07-17] MEDS: HEPARIN SODIUM,PORCINE 5,000 UNIT/ML 1 ML VIAL SQ SCH ×4 (00:24→23:17)
[2016-07-17] MEDS: HYDROcodone/APAP 5-325MG 1 EACH TAB PO PRN ×2 (00:25→20:47)
[2016-07-17] MEDS: LEVOTHYROXINE 100 MCG TAB PO SCH (06:43)
[2016-07-17] MEDS: LEVOTHYROXINE 50 MCG TAB PO SCH (06:43)
[2016-07-17] MEDS: KETOROLAC 30 MG/ML 1 ML VIAL IVP PRN ×3 (08:46→23:19)
[2016-07-17] MEDS: AZITHROMYCIN 500 MG TAB PO SCH (08:51)
[2016-07-17] MEDS: IPRATROPIUM-ALBUTEROL 3 ML NEB INHALATION SCH ×4 (09:13→19:27)
[2016-07-17] MEDS: DOCUSATE 100 MG CAP PO SCH ×2 (09:51→20:43)
--- NOTE | 2016-07-17 17:08 | P.PN ---
Subjective Date of service 07/17/2016. Progress note being dictated for Dr. Harkins. Interval history: This a 45-year-old female admitted with acute right-sided pleuritic chest pain, right-sided pneumonia, and multiple other medical issues. CT negative for PE, reports right middle lobe consolidation with loculated effusion on the right, possible atelectasis or pneumonia, underlying mass not excluded. Maintained on nebulized bronchodilators, antibiotics with breathing improved. Ambulating, tolerating increase in exertion better today.Tmax 100.4. Weaned off oxygen and maintaining O2 sats of 97% on room air. Objective - Vital Signs Vital signs: Vital Signs Temp 98.8 F 07/17/16 12:20 Pulse 88 07/17/16 13:09 Resp 20 07/17/16 12:20 BP 125/77 07/17/16 12:20 Pulse Ox 97 07/17/16 12:20 Intake & Output 07/16/16 07/17/16 07/17/16 18:59 06:59 18:59 Intake Total 500 Balance 500 Intake: Oral 500 - Exam PHYSICAL EXAM: VITAL SIGNS: As above GENERAL: [Sitting up in bed, no acute distress] HEENT: [Pupils equal conjunctiva normal.] NECK: [Supple, no JVD] RESPIRATORY EFFORT:[Normal] LUNGS: [Diminished, right basilar bronchophony ,fine crackles,] CARDIOVASCULAR[regular S1 and S2, no edema] GI: [Abdomen soft, nontender, positive bowel sounds.] PSYCH: [Alert and oriented -3, mood and affect normal.] NEURO: No focal deficits, was a 4 extremities, strength and sensation grossly intact - Labs CBC & Chem 7: 07/16/16 05:27 07/16/16 05:27 Labs: Microbiology - Last 24 Hours (Table) 07/15/16 12:05 Urine Culture - Final Urine,Clean Catch 07/15/16 16:15 Blood Culture - Preliminary Blood No Growth after 24 hours Assessment and Plan Plan: 1. Right-sided pleuritic chest pain with fever, related to right-sided pneumonia, right loculated effusion, possible underlying mass per CT. 2. [Atelectasis, right lower lobe]. 3. [PE ruled out]. 4. [Hyperthyroidism]. 5. [Hyperlipidemia]. Plan: Continue on current medication regime ,monitoring and symptomatic treatment. Maintain IV antibiotics for another 24 hours. Discharge planning in progress, pending afebrile 24 hours. Increase ambulation as tolerated. Aggressive pulmonary toileting with IS every hour 10, reinforced. Further recommendations to follow. The impression and plan of care has been dictated as directed. : I performed a H&P examination of this patient and discussed the same with the dictator. I agree with the dictator's note. Any additional findings/opinions/ etc. will be noted.
[2016-07-17] MEDS: PRAVASTATIN SODIUM 80 MG TAB PO SCH (20:43)
[2016-07-18] MEDS: HYDROcodone/APAP 5-325MG 1 EACH TAB PO PRN ×2 (06:45→20:39)
[2016-07-18] MEDS: LEVOTHYROXINE 100 MCG TAB PO SCH (06:46)
[2016-07-18] MEDS: LEVOTHYROXINE 50 MCG TAB PO SCH (06:46)
[2016-07-18] MEDS: IPRATROPIUM-ALBUTEROL 3 ML NEB INHALATION SCH ×4 (07:27→19:10)
[2016-07-18] MEDS: HEPARIN SODIUM,PORCINE 5,000 UNIT/ML 1 ML VIAL SQ SCH ×2 (08:30→17:00)
[2016-07-18] MEDS: DOCUSATE 100 MG CAP PO SCH ×3 (08:30→20:37)
[2016-07-18] MEDS: AZITHROMYCIN 500 MG TAB PO SCH (08:31)
[2016-07-18] MEDS ORDERED: methylPREDNISolone SOD SUCCI 125 MG/2 ML VIAL IV SCH ×2 (12:45→18:00)
--- NOTE | 2016-07-18 14:11 | P.CNPUL ---
History of Present Illness Consult date: 07/18/16 Requesting physician: Janet Harkins Reason for consult: abnormal CXR/CT Chief complaint: Right upper quadrant/rib pain History of present illness: This is a very pleasant 45-year-old female patient who follows with Dr. Ocasio as her primary care physician and has a past medical history of hypothyroidism and hyperlipidemia. She presented here on 07/14/2016 with complaints of right sided chest pain. She was seen initially in the emergency room on 07/13/16 with similar complaints was told it was a muscle pull/strain. The pain continued to worsen and she returned to the emergency room the next day. There is some mild right upper quadrant tenderness and she was admitted to the surgical group after an ultrasound revealed enlarged gallbladder with sludge. A hepatobiliary scan was performed which was within normal limits and no surgical intervention was planned. Subsequently a CT angiogram was done on 07/16/2016 and a pulmonary embolism was ruled out. However there was noted right middle and right lower lobe consolidations with a smaller left lower lobe consolidation and we are consulted today 07/18/2016 for the same. She has no previous pulmonary issues. She is a lifelong nonsmoker. No asthma. She denied any prior symptoms of pneumonia. No previous pneumonias. No cough or congestion. No real fever chills or night sweats. She denied any trauma to the chest wall. She is currently afebrile. She is maintaining good O2 saturations in the upper 90s on 2 L/m per nasal cannula. Hemodynamically stable. No elevated white count. Review of Systems 14 point review of system was conducted. All negative other than as mentioned in HPI. Past Medical History Past Medical History: Hyperlipidemia, Thyroid Disorder History of Any Multi-Drug Resistant Organisms: None Reported Additional Past Surgical History / Comment(s): (L) breast biopsy x 2. 15 years ago Past Anesthesia/Blood Transfusion Reactions: No Reported Reaction Past Psychological History: No Psychological Hx Reported Smoking Status: Former smoker Past Alcohol Use History: Rare Additional Past Alcohol Use History / Comment(s): onc or two drinks per year Past Drug Use History: None Reported - Past Family History Mother Family Medical History: Diabetes Mellitus, Hypertension, Pneumonia, Thyroid Disorder Additional Family Medical History / Comment(s): depression Father Family Medical History: Diabetes Mellitus Additional Family Medical History / Comment(s): open heart, heart attack, diverticulitis Medications and Allergies Home Medications Medication Instructions Recorded Confirmed Type Levothyroxine Sodium [Synthroid] 150 mcg PO DAILY 07/13/16 07/15/16 History Pravastatin Sodium [Pravachol] 80 mg PO HS 07/13/16 07/15/16 History ALPRAZolam [Xanax] 0.25 mg PO DAILY PRN 07/15/16 07/15/16 History Allergies Allergy/AdvReac Type Severity Reaction Status Date / Time No Known Allergies Allergy Verified 07/14/16 19:58 Physical Exam Vitals: Vital Signs Temp Pulse Pulse Resp BP Pulse Ox 07/18/16 12:55 97.2 F L 82 20 135/80 96 07/18/16 11:21 76 07/18/16 11:13 72 07/18/16 07:55 98.4 F 97 20 148/70 94 L 07/18/16 07:40 76 07/18/16 07:29 76 93 L 07/17/16 23:23 97.4 F L 77 20 125/80 93 L 07/17/16 20:00 22 07/17/16 19:37 80 07/17/16 19:28 79 94 L 07/17/16 19:25 99.0 F 79 19 127/71 94 L 07/17/16 16:54 100.6 F H 90 20 128/75 96 Intake and Output 07/17/16 07/18/16 07/18/16 22:59 06:59 14:59 Intake Total 200 Balance 200 Intake: Oral 200 Other: Voiding Method Toilet GENERAL EXAM: Alert, active, comfortable in no apparent distress. HEAD: Normocephalic. EYES: Normal reaction of pupils, equal size. NOSE: Clear with pink turbinates. THROAT: No erythema or exudates. NECK: No masses, no JVD. CHEST: No chest wall deformity. LUNGS: Equal air entry with crackles in the right posterior base. Diminished. CVS: S1 and S2 normal with no audible murmurs, regular rhythm. ABDOMEN: No hepatosplenomegaly, normal bowel sounds, no guarding or rigidity. SPINE: No scoliosis or deformity SKIN: No rashes CENTRAL NERVOUS SYSTEM: No focal deficits, tone is normal in all 4 extremities. Extremities: There is no significant peripheral edema. No clubbing, no cyanosis. Peripheral pulses are intact. Results - Laboratory Findings CBC and BMP: 07/16/16 05:27 07/16/16 05:27 PT/INR, D-dimer PT 9.9 sec (9.0-12.0) 07/14/16 20:50 INR 1.0 (<1.1) 07/14/16 20:50 D-Dimer 0.51 mg/L FEU (<0.60) 07/14/16 20:50 Abnormal lab findings: Abnormal Labs 07/15/16 07/15/16 07/15/16 08:12 08:12 12:05 Neutrophils # 8.1 H Glucose 106 H Calcium Total Protein Albumin Urine Appearance Cloudy H Ur Specific [place] 1.036 H Urine Protein 1+ H Urine Ketones 1+ H Urine Blood Large H Urine RBC 113 H Urine WBC 8 H Ur Squamous Epith Cells 21 H Urine Mucus Moderate H 07/16/16 05:27 Neutrophils # Glucose 106 H Calcium 8.2 L Total Protein 5.7 L Albumin 3.3 L Urine Appearance Ur Specific [place] Urine Protein Urine Ketones Urine Blood Urine RBC Urine WBC Ur Squamous Epith Cells Urine Mucus - Diagnostic Findings Chest x-ray: image reviewed CT scan - chest: image reviewed Assessment and Plan Plan: Impression: #1 Right upper quadrant/chest pain. Cholecystitis and pancreatitis ruled out. Computed tomography scan of the chest ruled out pulmonary embolism. There is a large right-sided pleural effusion somewhat loculated, right middle lobe consolidation and right lower lobe atelectasis. There is also some noted consolidation of the left base. #2 Hyperlipidemia. #3 Hypothyroidism. Plan: The patient was seen and evaluated by Dr. Abdul. Her chest x-ray, CAT scans and labs were reviewed. We did order an ultrasound of the right chest which did not reveal a significant amount of free flowing fluid. The patient is improving clinically. We'll hold off on thoracentesis or bronchoscopy for now. We'll reevaluate her in the a.m. We'll repeat her chest x-ray then. We'll also give 2 doses of IV Solu-Medrol to help control the inflammatory pain. We' ll continue with her current antibiotics in the form of ceftriaxone and azithromycin. She is on DuoNeb inhalations 4 times a day and when necessary. We'll continue to follow and make further recommendations based on her clinical status. Time with Patient: Greater than 30
--- NOTE | 2016-07-18 14:12 | US ---
EXAMINATION TYPE: US chest DATE OF EXAM: 07/18/2016 12:27 PM COMPARISON: CT chest 16 July 2016 CLINICAL HISTORY: rt pleural effusion and pleurisy. EXAM MEASUREMENTS: TECHNOLOGIST IMPRESSION: Right Pleural Effusion fluid pocket: 3.2 cm, possible solid component to fluid, anterior area appear s hypoechoic not anechoic. Right skin to fluid thickness: 4.5 cm Right side marked for possible thoracentesis outside the dept. Pulmonologists are able to review the images in the patient?s EMR. Pleural effusion is present in the posterior right chest. There is associated atelectasis. IMPRESSIONS: Right pleural effusion
[2016-07-18] MEDS: KETOROLAC 30 MG/ML 1 ML VIAL IVP PRN (14:32)
--- NOTE | 2016-07-18 17:03 | P.PN ---
Subjective Date of service 07/18/2016. Progress note being dictated for Dr. Restrepo. Interval history: This a 45-year-old female admitted with acute right-sided pleuritic chest pain, right-sided pneumonia, large right sided loculated pleural effusion, right middle lobe consolidation, atelectasis and multiple other medical issues. Chest Ultrasound performed today and did not reveal enough fluid for thoracentesis.Evaluated by a pulmonary, recommendations noted. Maintained on nebulized bronchodilators, Rocephin, azithromycin, steroids with breathing improved. Tmax 100.6. Yesterday nasal cannula O2 at the weaned off, today maintaining O2 sats of 96% on 2 L nasal cannula. Review of systems: HEENT: Denies headache or focal deficits. Denies any dizziness or lightheadedness. Respiratory: Mild increase in shortness of breath with exertion, improving Cardiac: Denies any chest pain, palpitations. GI: Denies any nausea, vomiting, or diarrhea. Denies any abdominal tenderness. : Denies any dysuria. Psychiatry: Denies any anxiety or depression. Active Medications Acetaminophen/Hydrocodone Bitart ([place] 5-325) 1 each PO Q4HR PRN PRN Reason: Moderate Pain Last Admin: 07/18/16 06:45 Dose: 1 each Albuterol/Ipratropium (Duoneb 0.5 Mg-3 Mg/3 Ml Soln) 3 ml INHALATION RT-QID [facility] Last Admin: 07/18/16 15:39 Dose: 3 ml Azithromycin (Zithromax) 500 mg PO DAILY [facility] Last Admin: 07/18/16 08:31 Dose: 500 mg Cyclobenzaprine HCl (Flexeril) 5 mg PO TID PRN PRN Reason: Muscle Spasm Last Admin: 07/16/16 08:30 Dose: 5 mg Docusate Sodium (Colace) 100 mg PO BID [facility] Last Admin: 07/18/16 08:32 Dose: Not Given Heparin Sodium (Porcine) (Heparin) 5,000 unit SQ Q8HR [facility] Last Admin: 07/18/16 08:30 Dose: 5,000 unit Ceftriaxone Sodium 1,000 mg/ (Sodium Chloride) 50 mls @ 100 mls/hr IVPB Q24HR [facility] Last Admin: 07/18/16 08:30 Dose: 100 mls/hr Levothyroxine Sodium (Synthroid) 100 mcg PO 0630 [facility] Last Admin: 07/18/16 06:46 Dose: 100 mcg Levothyroxine Sodium (Synthroid) 50 mcg PO 0630 [facility] Last Admin: 07/18/16 06:46 Dose: 50 mcg Methylprednisolone Sodium Succinate (Solu-Medrol) 60 mg IV Q6HR [facility] Naloxone HCl (Narcan) 0.2 mg IV Q2M PRN PRN Reason: Opioid Reversal Ondansetron HCl (Zofran) 4 mg IVP Q8HR PRN PRN Reason: Nausea And Vomiting Last Admin: 07/15/16 17:09 Dose: 4 mg Pravastatin Sodium (Pravachol) 80 mg PO HS [facility] Last Admin: 07/17/16 20:43 Dose: 80 mg Objective - Vital Signs Vital signs: Vital Signs Temp 97.2 F L 07/18/16 12:55 Pulse 82 07/18/16 15:50 Resp 20 07/18/16 12:55 BP 135/80 07/18/16 12:55 Pulse Ox 96 07/18/16 12:55 Intake & Output 07/17/16 07/18/16 07/18/16 18:59 06:59 18:59 Intake Total 200 Balance 200 Intake: Oral 200 Other: Voiding Method Toilet - Exam PHYSICAL EXAM: VITAL SIGNS: As above GENERAL: [Sitting up in bed, no acute distress] HEENT: [Pupils equal conjunctiva normal.] NECK: [Supple, no JVD] RESPIRATORY EFFORT:[Normal] LUNGS: [Diminished, right basilar crackles] CARDIOVASCULAR[regular S1 and S2, no edema] GI: [Abdomen soft, nontender, positive bowel sounds.] PSYCH: [Alert and oriented -3, mood and affect normal.] NEURO: No focal deficits, was a 4 extremities, strength and sensation grossly intact Microbiology 07/14/16 20:50 Blood Blood Culture - Preliminary No Growth after 72 hours 07/15/16 16:15 Blood Blood Culture - Preliminary No Growth after 48 hours 07/15/16 12:05 Urine,Clean Catch Urine Culture - Final - Labs CBC & Chem 7: 07/16/16 05:27 07/16/16 05:27 Labs: Microbiology - Last 24 Hours (Table) 07/15/16 16:15 Blood Culture - Preliminary Blood No Growth after 48 hours Assessment and Plan Plan: 1. Right-sided pleuritic chest pain with fever, related to right-sided pneumonia, large right loculated effusion with right middle lobe consolidation. 2. [Atelectasis, right lower lobe]. 3. [PE ruled out]. 4. [Hyperthyroidism]. 5. [Hyperlipidemia]. 6. History of nicotine abuse. Plan: Continue on current medication regime ,monitoring and symptomatic treatment. Follow-up chest x-ray in a.m. aggressive pulmonary toileting, IS reinforced. Follow closely with pulmonary. Further recommendations to follow. The impression and plan of care has been dictated as directed. : I performed a H&P examination of this patient and discussed the same with the dictator. I agree with the dictator's note. Any additional findings/opinions/ etc. will be noted.
[2016-07-18] MEDS: methylPREDNISolone SOD SUCCI 125 MG/2 ML VIAL IV SCH (19:43)
[2016-07-18] MEDS: PRAVASTATIN SODIUM 80 MG TAB PO SCH (20:37)
--- NOTE | 2016-07-18 22:27 | PN ---
DATE OF SERVICE: 07/18/2016 This 45-year-old woman who was admitted with right lower quadrant abdominal and chest pain also had a large loculated pleural effusion on the right side with possible consolidation. Seen and evaluated the patient along with the nurse practitioner. Please refer to the nurse practitioner's notes and impressions documented as a scribe for further information. Chest ultrasound was done and deemed not sufficient to indicate paracentesis, per Dr. Abdul. Influenza is negative. Troponins are negative. Prognosis guarded. Stable. See orders for further details. Further recommendations to follow.
[2016-07-19] MEDS: methylPREDNISolone SOD SUCCI 125 MG/2 ML VIAL IV SCH ×3 (00:40→12:28)
[2016-07-19] MEDS: HYDROcodone/APAP 5-325MG 1 EACH TAB PO PRN ×3 (00:41→23:28)
[2016-07-19] MEDS: HEPARIN SODIUM,PORCINE 5,000 UNIT/ML 1 ML VIAL SQ SCH ×4 (00:41→23:30)
[2016-07-19] MEDS: LEVOTHYROXINE 50 MCG TAB PO SCH (06:23)
[2016-07-19] MEDS: LEVOTHYROXINE 100 MCG TAB PO SCH (06:24)
[2016-07-19] MEDS: IPRATROPIUM-ALBUTEROL 3 ML NEB INHALATION SCH ×4 (07:27→21:39)
--- NOTE | 2016-07-19 08:18 | XR ---
EXAMINATION TYPE: XR chest 2V DATE OF EXAM: 07/19/2016 6:21 AM HISTORY: Right-sided effusion. REFERENCE: Previous study dated 07/14/2016. FINDINGS: There is a worsening right basilar infiltrate. Heart size is obscured. I suspect bilateral effusions. IMPRESSION: WORSENING RIGHT BASILAR AIRSPACE DISEASE.
[2016-07-19] MEDS: AZITHROMYCIN 500 MG TAB PO SCH (08:47)
[2016-07-19] MEDS: DOCUSATE 100 MG CAP PO SCH ×2 (09:17→21:32)
--- NOTE | 2016-07-19 13:56 | P.PN ---
Subjective Principal diagnosis: Right lower lobe and right middle lobe pneumonia with parapneumonic effusion and pleurisy. This is a very pleasant 45-year-old female patient who follows with Dr. Ocasio as her primary care physician and has a past medical history of hypothyroidism and hyperlipidemia. She presented here on 07/14/2016 with complaints of right sided chest pain. She was seen initially in the emergency room on 07/13/16 with similar complaints was told it was a muscle pull/strain. The pain continued to worsen and she returned to the emergency room the next day. There is some mild right upper quadrant tenderness and she was admitted to the surgical group after an ultrasound revealed enlarged gallbladder with sludge. A hepatobiliary scan was performed which was within normal limits and no surgical intervention was planned. Subsequently a CT angiogram was done on 07/16/2016 and a pulmonary embolism was ruled out. However there was noted right middle and right lower lobe consolidations with a smaller left lower lobe consolidation and we are consulted today 07/18/2016 for the same. She has no previous pulmonary issues. She is a lifelong nonsmoker. No asthma. She denied any prior symptoms of pneumonia. No previous pneumonias. No cough or congestion. No real fever chills or night sweats. She denied any trauma to the chest wall. She is currently afebrile. She is maintaining good O2 saturations in the upper 90s on 2 L/m per nasal cannula. Hemodynamically stable. No elevated white count. Patient was reevaluated today on 07/19/2016, clinically she is feeling better, no cough no wheezing no fever no chills no hemoptysis and her chest pain is significantly improved. No further episodes of pleuritic pain, however the patient is desaturating, and her O2 saturation is 91-92% on 2 L nasal cannula. Chest x-ray is basically about the same, continues to have consolidation in the right lower lobe, and a small right-sided pleural effusion ultrasound of the chest showed the pocket was less than 4 cm, and there was some solid component to the fluid. Hence I felt thoracentesis would be a bit risky at this point. And I felt it would be best to continue antibiotics, and she was placed on Solu- Medrol. Patient clearly had a significant clinical improvement over the last 24 hours. And no more pain. No cough no wheezing, and no shortness of breath Objective - Vital Signs Vital signs: Vital Signs Temp 97.7 F 07/19/16 11:25 Pulse 65 07/19/16 11:25 Resp 20 07/19/16 11:25 BP 121/69 07/19/16 11:25 Pulse Ox 92 L 07/19/16 11:25 Intake & Output 07/18/16 07/19/16 07/19/16 18:59 06:59 18:59 Intake Total 200 640 250 Balance 200 640 250 Intake: Oral 200 640 250 Other: Voiding Method Toilet Toilet # Voids 1 - Exam GENERAL EXAM: Alert, active, comfortable in no apparent distress. HEAD: Normocephalic. EYES: Normal reaction of pupils, equal size. NOSE: Clear with pink turbinates. THROAT: No erythema or exudates. NECK: No masses, no JVD. CHEST: No chest wall deformity. LUNGS: Equal air entry with crackles in the right posterior base. Diminished. CVS: S1 and S2 normal with no audible murmurs, regular rhythm. ABDOMEN: No hepatosplenomegaly, normal bowel sounds, no guarding or rigidity. SPINE: No scoliosis or deformity SKIN: No rashes CENTRAL NERVOUS SYSTEM: No focal deficits, tone is normal in all 4 extremities. Extremities: There is no significant peripheral edema. No clubbing, no cyanosis. Peripheral pulses are intact. - Labs CBC & Chem 7: 07/16/16 05:27 07/16/16 05:27 Labs: Microbiology - Last 24 Hours (Table) 07/15/16 16:15 Blood Culture - Preliminary Blood No Growth after 72 hours Assessment and Plan Plan: Impression: Acute right lower lobe pneumonia with a right-sided parapneumonic effusion, and right lower lobe atelectasis. Small left lower lobe consolidation was also noted on the CT of the chest. Recommendation: Continue antibiotics, patient is presently on Rocephin and Zithromax, continue Solu-Medrol however I will cut down the dose, and continue bronchodilators. Continue incentive spirometry, follow-up chest x-ray over the weekend, and possible repeat ultrasound early next week if the patient is not discharged home. We'll continue to follow, discussed her condition today with her and with her at bedside. Also discussed the options of potential bronchoscopy and ultrasound guided thoracentesis if her condition gets any worse. Time with Patient: Less than 30
--- NOTE | 2016-07-19 19:42 | PN ---
DATE OF SERVICE: 07/19/2016 This 45-year-old woman who was admitted with right-sided pleuritic pain also had pleural effusion, possibly pneumonia also. Pulmonary consultation. PE has been ruled out. Patient was hypoxic. Patient also had some atelectasis, possibly compressive in nature. Dr. Abdul is following the patient closely. After chest ultrasound, Dr. Abdul determined that a thoracocentesis was not indicated at this time. The patient also working on incentive spirometry as well. PAST MEDICAL HISTORY: Reviewed. REVIEW OF SYSTEMS: CARDIOVASCULAR: As mentioned earlier. RESPIRATORY: As mentioned earlier. GI: No nausea. : No dysuria. NERVOUS SYSTEM: No numbness or weakness. Current medications are reviewed and include: 1. Brush 5 mg q.4 p.r.n. 2. DuoNeb q.i.d. and p.r.n. 3. Zithromax 500 mg daily. 4. Rocephin 1 gram daily. 5. Flexeril 500 mg t.i.d. 6. Colace 100 mg p.o. b.i.d. 7. Heparin 5000 subcu q.8. 8. Synthroid 100 mcg p.o. daily. 9. Solu-Medrol 40 b.i.d. 10. Narcan. 11. Zofran. 12. TriCor. PHYSICAL EXAMINATION: Patient is alert and oriented x2. Pulse 70, blood pressure 130/68, respirations 20, temperature 98.2, pulse ox 92% on 2-L. HEENT: Conjunctivae normal. Oral mucosa moist. NECK: No jugular venous distention. No carotid bruit. No lymph node enlargement. CARDIOVASCULAR: S1 and S2, muffled. RESPIRATORY: Breath sounds diminished at the bases. A few scattered rhonchi and crackles. ABDOMEN: Soft, nontender. No mass palpable. LEGS: No edema, no swelling. NERVOUS SYSTEM: No focal deficits. LABS: Glucose 106. Albumin 3.3. Influenza is negative. ASSESSMENT: 1. Right sided pleuritic pain with right-sided pneumonia, possibly community acquired with right loculated pleural effusion and as well as right middle lobe consolidation. 2. Bilateral atelectasis. 3. Pulmonary embolism ruled out. 4. Hypothyroidism history. 5. Hyperlipidemia. 6. History of nicotine dependence. 7. Obesity with a body mass index of 32.2. 8. Mild hypoalbuminemia. RECOMMENDATION AND DISCUSSION: Continue the current medications with monitoring and symptomatic treatment. Otherwise, at this time I would recommend to continue the antibiotics. Continue with tapering dose of steroids. Monitor closely. I would also recommend repeat labs as well. See orders for further details. Prognosis is guarded. Further recommendations to follow. Continue with DVT prophylaxis.
[2016-07-19] MEDS: PRAVASTATIN SODIUM 80 MG TAB PO SCH (20:36)
[2016-07-19] MEDS: methylPREDNISolone SOD SUCCI 40 MG/ML 1 ML VIAL IVP SCH (21:33)
[2016-07-20] MEDS: HYDROcodone/APAP 5-325MG 1 EACH TAB PO PRN ×2 (04:00→21:15)
[2016-07-20] MEDS: LEVOTHYROXINE 50 MCG TAB PO SCH (06:23)
[2016-07-20] MEDS: LEVOTHYROXINE 100 MCG TAB PO SCH (06:23)
[2016-07-20 08:14] LABS: Anion Gap 10 mmol/L; Blood Urea Nitrogen 19 mg/dL (7-17); Calcium 8.5 mg/dL (8.4-10.2); Carbon Dioxide 25 mmol/L (22-30); Chloride 108 mmol/L (98-107); Glucose 143 mg/dL (74-99); Non-African American GFR(MDRD) >60 (>60 ml/min/1.73 sqM); Potassium 4.6 mmol/L (3.5-5.1); Sodium 143 mmol/L (137-145)
[2016-07-20 08:40] LABS: Basophils % (A) 0 %; CH 30.7; CHCM 32.2; Eosinophils % (A) 0 %; HCT 31.1 % (34.0-46.0); HDW 2.57; Luc # (Auto) 0.07; Luc % (Auto) 1; Lymphocytes # (A) 1.2 k/uL (1.0-4.8); Lymphocytes % (A) 11 %; MCH 30.9 pg (25.0-35.0); MCHC 32.2 g/dL (31.0-37.0); Mean Platelet Volume 8.5; Monocytes # (A) 0.5 k/uL (0-1.0); Monocytes % (A) 4 %; Neutrophils # (A) 9.2 k/uL (1.3-7.7); Neutrophils % (A) 84 %; RBC 3.24 m/uL (3.80-5.40); RDW 12.8 % (11.5-15.5); WBC (Perox) 12.04
[2016-07-20] MEDS: IPRATROPIUM-ALBUTEROL 3 ML NEB INHALATION SCH ×4 (08:59→20:32)
--- NOTE | 2016-07-20 09:30 | XR ---
EXAMINATION TYPE: XR chest 1V portable DATE OF EXAM: 07/20/2016 7:12 AM COMPARISON: NONE INDICATION: Pneumonia, pleural effusion TECHNIQUE: Single frontal view of the chest is obtained. FINDINGS: The heart size is normal. The pulmonary vasculature is normal. Right lower lobe infiltrate is present. Small right pleural effusion may be present. Findings are sim ilar to prior study. Left basilar infiltrate may be present IMPRESSION: 1. Right lower lobe infiltrate with right pleural effusion. 2. Minimal infiltrate in the left base is not excluded. 3. Continued follow-up is recommended.
[2016-07-20] MEDS: HEPARIN SODIUM,PORCINE 5,000 UNIT/ML 1 ML VIAL SQ SCH ×3 (10:23→23:19)
[2016-07-20] MEDS: methylPREDNISolone SOD SUCCI 40 MG/ML 1 ML VIAL IVP SCH ×2 (10:23→21:15)
[2016-07-20] MEDS: DOCUSATE 100 MG CAP PO SCH ×2 (10:24→21:23)
[2016-07-20] MEDS: AZITHROMYCIN 500 MG TAB PO SCH (10:24)
--- NOTE | 2016-07-20 12:38 | P.PN ---
Subjective Principal diagnosis: Right lower lobe and right middle lobe pneumonia with parapneumonic effusion and pleurisy. This is a very pleasant 45-year-old female patient who follows with Dr. Ocasio as her primary care physician and has a past medical history of hypothyroidism and hyperlipidemia. She presented here on 07/14/2016 with complaints of right sided chest pain. She was seen initially in the emergency room on 07/13/16 with similar complaints was told it was a muscle pull/strain. The pain continued to worsen and she returned to the emergency room the next day. There is some mild right upper quadrant tenderness and she was admitted to the surgical group after an ultrasound revealed enlarged gallbladder with sludge. A hepatobiliary scan was performed which was within normal limits and no surgical intervention was planned. Subsequently a CT angiogram was done on 07/16/2016 and a pulmonary embolism was ruled out. However there was noted right middle and right lower lobe consolidations with a smaller left lower lobe consolidation and we are consulted today 07/18/2016 for the same. She has no previous pulmonary issues. She is a lifelong nonsmoker. No asthma. She denied any prior symptoms of pneumonia. No previous pneumonias. No cough or congestion. No real fever chills or night sweats. She denied any trauma to the chest wall. She is currently afebrile. She is maintaining good O2 saturations in the upper 90s on 2 L/m per nasal cannula. Hemodynamically stable. No elevated white count. Patient was reevaluated today on 07/19/2016, clinically she is feeling better, no cough no wheezing no fever no chills no hemoptysis and her chest pain is significantly improved. No further episodes of pleuritic pain, however the patient is desaturating, and her O2 saturation is 91-92% on 2 L nasal cannula. Chest x-ray is basically about the same, continues to have consolidation in the right lower lobe, and a small right-sided pleural effusion ultrasound of the chest showed the pocket was less than 4 cm, and there was some solid component to the fluid. Hence I felt thoracentesis would be a bit risky at this point. And I felt it would be best to continue antibiotics, and she was placed on Solu- Medrol. Patient clearly had a significant clinical improvement over the last 24 hours. And no more pain. No cough no wheezing, and no shortness of breath Patient was reevaluated today on 07/20/2016, clinically she feels a little bit better, less short of breath, no cough no fever no chills no hemoptysis no chest pain. Chest x-ray is basically about the same, continues to have some changes in the right lower lobe with a small pleural effusion, and possible infiltrate in the left lower lobe. Or atelectasis. Patient is a bit improved clinically, but I'm still concerned that the patient may eventually require thoracentesis if the right-sided pleural effusion gets any larger. Hence I will recommend that the patient remains in the hospital until Friday, repeat ultrasound of the chest on Friday, and if the fluid is getting any larger especially if it is more than 4.cm pocket, one would consider thoracentesis. Given the size is marginal, we could have this done by interventional radiology with ultrasound at bedside. Objective - Vital Signs Vital signs: Vital Signs Temp 97.8 F 07/20/16 08:00 Pulse 68 07/20/16 12:15 Resp 19 07/20/16 08:00 BP 144/89 07/20/16 08:00 Pulse Ox 94 L 07/20/16 09:01 Intake & Output 07/19/16 07/20/16 07/20/16 18:59 06:59 18:59 Intake Total 450 Balance 450 Intake: Oral 450 - Exam GENERAL EXAM: Alert, active, comfortable in no apparent distress. HEAD: Normocephalic. EYES: Normal reaction of pupils, equal size. NOSE: Clear with pink turbinates. THROAT: No erythema or exudates. NECK: No masses, no JVD. CHEST: No chest wall deformity. LUNGS: Equal air entry with crackles in the right posterior base. Diminished. CVS: S1 and S2 normal with no audible murmurs, regular rhythm. ABDOMEN: No hepatosplenomegaly, normal bowel sounds, no guarding or rigidity. SPINE: No scoliosis or deformity SKIN: No rashes CENTRAL NERVOUS SYSTEM: No focal deficits, tone is normal in all 4 extremities. Extremities: There is no significant peripheral edema. No clubbing, no cyanosis. Peripheral pulses are intact. - Labs CBC & Chem 7: 07/20/16 07:00 07/20/16 07:00 Labs: Abnormal Lab Results - Last 24 Hours (Table) 07/20/16 07/20/16 Range/Units 07:00 07:00 WBC 11.0 H (3.8-10.6) k/uL RBC 3.24 L (3.80-5.40) m/uL Hgb 10.0 L D (11.4-16.0) gm/dL Hct 31.1 L (34.0-46.0) % Neutrophils # 9.2 H (1.3-7.7) k/uL Chloride 108 H (98-107) mmol/L BUN 19 H (7-17) mg/dL Glucose 143 H (74-99) mg/dL Microbiology - Last 24 Hours (Table) 07/15/16 16:15 Blood Culture - Preliminary Blood No Growth after 96 hours Assessment and Plan Plan: Impression: Acute right lower lobe pneumonia with a right-sided parapneumonic effusion, and right lower lobe atelectasis. Small left lower lobe consolidation was also noted on the CT of the chest. Recommendation: Continue antibiotics, patient is presently on Rocephin and Zithromax, continue Solu-Medrol however I will cut down the dose, and continue bronchodilators. Continue incentive spirometry, my plan is to repeat ultrasound on Friday, and based on the increase or decrease of the size of the pleural effusion, further decisions will be made. If the effusion seems to be a bit larger, may consider consulting interventional radiology for ultrasound- guided thoracentesis. In the meantime continue antibiotics and steroids. We' ll cut down the dose of the steroids. Time with Patient: Less than 30
--- NOTE | 2016-07-20 20:08 | PN ---
DATE OF SERVICE: 07/20/2016 This 45 -year-old woman was admitted with right lower lobe pleural effusion, as well as possibly parapneumonic pleural effusion is being closely monitored. Dr. Abdul is following the patient closely. No chest pain. No palpitations. No fever. On exam alert and oriented times three. Pulse 65. Blood pressure 150/82. Respiratory rate 24, temperature 98 degrees, pulse ox 93% on 2.5 liters. HEENT: Conjunctivae normal. NECK: No jugular venous distention. CARDIOVASCULAR: S1, S2 muffled. RESPIRATORY: Breath sounds diminished at the bases. A few scattered rhonchi and crackles. Breath sounds markedly diminished on the right lower base. ABDOMEN: Soft, nontender. No mass palpable. LEGS: No edema. No swelling. CENTRAL NERVOUS SYSTEM: No focal deficits. LABS: WBC 11, hemoglobin is 10, influenza is negative. ASSESSMENT: 1. Right-sided pneumonia with possible parapneumonic effusion and possibly community acquired pneumonia with loculated pleural effusion as well as middle lobe consolidation. 2. Bilateral atelectasis. 3. Pulmonary embolism ruled out. 4. Hypothyroidism. 5. Hyperlipidemia. 6. History of nicotine dependence. 7. Morbid obesity, obesity 32.2. 8. Mild hypoalbuminemia. 9. FULL CODE. RECOMMENDATIONS AND DISCUSSION: In this 46-year-old woman who presented with multiple complex medical issues, recommend to continue current medications. Continue symptomatic treatment. Otherwise, at this time, I would recommend to continue the current antibiotics. Taper steroids. Bronchodilators. Closely follow with Dr. Abdul . Dr. Abdul is recommending a follow-up and reassessment on Friday and depending upon the amount of fluid, recommend interventional radiology for ultrasound-guided thoracocentesis. Prognosis guarded. Further recommendations to follow.
[2016-07-20] MEDS: PRAVASTATIN SODIUM 80 MG TAB PO SCH (21:16)
[2016-07-20] MEDS: ALPRAZolam 0.25 MG TAB PO PRN (23:18)
[2016-07-21] MEDS: HYDROcodone/APAP 5-325MG 1 EACH TAB PO PRN ×2 (03:35→23:15)
[2016-07-21 05:41] LABS: Basophils % (A) 0 %; CH 30.6; CHCM 32.7; Eosinophils % (A) 0 %; HCT 32.9 % (34.0-46.0); HDW 2.56; HGB 10.5 gm/dL (11.4-16.0); Luc # (Auto) 0.07; Luc % (Auto) 1; Lymphocytes # (A) 1.3 k/uL (1.0-4.8); Lymphocytes % (A) 13 %; MCHC 31.8 g/dL (31.0-37.0); MCV 94.3 fL (80.0-100.0); Mean Platelet Volume 7.9; Monocytes # (A) 0.4 k/uL (0-1.0); Monocytes % (A) 4 %; Neutrophils % (A) 81 %; RBC 3.49 m/uL (3.80-5.40); RDW 12.6 % (11.5-15.5); WBC 9.9 k/uL (3.8-10.6); WBC (Perox) 10.54
[2016-07-21 05:55] LABS: Anion Gap 8 mmol/L; Blood Urea Nitrogen 17 mg/dL (7-17); Calcium 8.4 mg/dL (8.4-10.2); Carbon Dioxide 26 mmol/L (22-30); Chloride 108 mmol/L (98-107); Glucose 136 mg/dL (74-99); Non-African American GFR(MDRD) >60 (>60 ml/min/1.73 sqM); Potassium 4.4 mmol/L (3.5-5.1); Sodium 142 mmol/L (137-145)
[2016-07-21] MEDS: LEVOTHYROXINE 50 MCG TAB PO SCH (06:27)
[2016-07-21] MEDS: LEVOTHYROXINE 100 MCG TAB PO SCH (06:27)
[2016-07-21] MEDS: IPRATROPIUM-ALBUTEROL 3 ML NEB INHALATION SCH ×4 (08:34→21:16)
[2016-07-21] MEDS: DOCUSATE 100 MG CAP PO SCH ×2 (08:39→23:15)
[2016-07-21] MEDS: AZITHROMYCIN 500 MG TAB PO SCH (08:39)
[2016-07-21] MEDS: HEPARIN SODIUM,PORCINE 5,000 UNIT/ML 1 ML VIAL SQ SCH ×2 (08:39→15:31)
[2016-07-21] MEDS: methylPREDNISolone SOD SUCCI 40 MG/ML 1 ML VIAL IVP SCH (08:39)
[2016-07-21] MEDS: ALPRAZolam 0.25 MG TAB PO PRN (08:47)
--- NOTE | 2016-07-21 12:17 | P.PN ---
Subjective Principal diagnosis: Right lower lobe and right middle lobe pneumonia with parapneumonic effusion and pleurisy. This is a very pleasant 45-year-old female patient who follows with Dr. Ocasio as her primary care physician and has a past medical history of hypothyroidism and hyperlipidemia. She presented here on 07/14/2016 with complaints of right sided chest pain. She was seen initially in the emergency room on 07/13/16 with similar complaints was told it was a muscle pull/strain. The pain continued to worsen and she returned to the emergency room the next day. There is some mild right upper quadrant tenderness and she was admitted to the surgical group after an ultrasound revealed enlarged gallbladder with sludge. A hepatobiliary scan was performed which was within normal limits and no surgical intervention was planned. Subsequently a CT angiogram was done on 07/16/2016 and a pulmonary embolism was ruled out. However there was noted right middle and right lower lobe consolidations with a smaller left lower lobe consolidation and we are consulted today 07/18/2016 for the same. She has no previous pulmonary issues. She is a lifelong nonsmoker. No asthma. She denied any prior symptoms of pneumonia. No previous pneumonias. No cough or congestion. No real fever chills or night sweats. She denied any trauma to the chest wall. She is currently afebrile. She is maintaining good O2 saturations in the upper 90s on 2 L/m per nasal cannula. Hemodynamically stable. No elevated white count. Patient was reevaluated today on 07/19/2016, clinically she is feeling better, no cough no wheezing no fever no chills no hemoptysis and her chest pain is significantly improved. No further episodes of pleuritic pain, however the patient is desaturating, and her O2 saturation is 91-92% on 2 L nasal cannula. Chest x-ray is basically about the same, continues to have consolidation in the right lower lobe, and a small right-sided pleural effusion ultrasound of the chest showed the pocket was less than 4 cm, and there was some solid component to the fluid. Hence I felt thoracentesis would be a bit risky at this point. And I felt it would be best to continue antibiotics, and she was placed on Solu- Medrol. Patient clearly had a significant clinical improvement over the last 24 hours. And no more pain. No cough no wheezing, and no shortness of breath Patient was reevaluated today on 07/20/2016, clinically she feels a little bit better, less short of breath, no cough no fever no chills no hemoptysis no chest pain. Chest x-ray is basically about the same, continues to have some changes in the right lower lobe with a small pleural effusion, and possible infiltrate in the left lower lobe. Or atelectasis. Patient is a bit improved clinically, but I'm still concerned that the patient may eventually require thoracentesis if the right-sided pleural effusion gets any larger. Hence I will recommend that the patient remains in the hospital until Friday, repeat ultrasound of the chest on Friday, and if the fluid is getting any larger especially if it is more than 4.cm pocket, one would consider thoracentesis. Given the size is marginal, we could have this done by interventional radiology with ultrasound at bedside. Patient was reevaluated today on 07/21/2016, continues to steadily improve, feeling better today, breathing easier, no fever no chills, she has occasional cough. Today I discussed with the patient my plan to repeat chest x-ray and her ultrasound of the chest tomorrow, and if they are showing improvement or at least of the pleural effusion is not getting larger in size, patient could be discharged home. Otherwise she will need ultrasound guided thoracentesis for her pleural effusion. In the meantime we'll continue antibiotics and bronchodilators and steroids. Her Solu-Medrol will be changed to a Medrol Dosepak, and is discharged home tomorrow, she will continue on the Medrol Dosepak and antibiotics. Objective - Vital Signs Vital signs: Vital Signs Temp 97.4 F L 07/21/16 11:43 Pulse 64 07/21/16 11:43 Resp 24 07/21/16 11:43 BP 133/73 07/21/16 11:43 Pulse Ox 92 L 07/21/16 11:43 Intake & Output 07/20/16 07/21/16 07/21/16 18:59 06:59 18:59 Intake Total 240 240 Balance 240 240 Intake: Oral 240 240 Other: # Voids 1 - Exam GENERAL EXAM: Alert, active, comfortable in no apparent distress. HEAD: Normocephalic. EYES: Normal reaction of pupils, equal size. NOSE: Clear with pink turbinates. THROAT: No erythema or exudates. NECK: No masses, no JVD. CHEST: No chest wall deformity. LUNGS: Equal air entry with crackles in the right posterior base. Diminished. CVS: S1 and S2 normal with no audible murmurs, regular rhythm. ABDOMEN: No hepatosplenomegaly, normal bowel sounds, no guarding or rigidity. SPINE: No scoliosis or deformity SKIN: No rashes CENTRAL NERVOUS SYSTEM: No focal deficits, tone is normal in all 4 extremities. Extremities: There is no significant peripheral edema. No clubbing, no cyanosis. Peripheral pulses are intact. - Labs CBC & Chem 7: 07/21/16 05:27 07/21/16 05:27 Labs: Abnormal Lab Results - Last 24 Hours (Table) 07/21/16 07/21/16 Range/Units 05:27 05:27 RBC 3.49 L (3.80-5.40) m/uL Hgb 10.5 L (11.4-16.0) gm/dL Hct 32.9 L (34.0-46.0) % Neutrophils # 8.0 H (1.3-7.7) k/uL Chloride 108 H (98-107) mmol/L Glucose 136 H (74-99) mg/dL Microbiology - Last 24 Hours (Table) 07/15/16 16:15 Blood Culture - Preliminary Blood No Growth after 120 hours Assessment and Plan Plan: Impression: Acute right lower lobe pneumonia with a right-sided parapneumonic effusion, and right lower lobe atelectasis. Small left lower lobe consolidation was also noted on the CT of the chest. Recommendation: Continue antibiotics, patient is presently on Rocephin and Zithromax, continue Medrol Dosepak, and continue bronchodilators. Continue incentive spirometry, my plan is to repeat ultrasound on Friday, and based on the increase or decrease of the size of the pleural effusion, further decisions will be made. If the effusion seems to be a bit larger, may consider consulting interventional radiology for ultrasound-guided thoracentesis. In the meantime continue antibiotics and steroids. We'll cut down the dose of the steroids. Time with Patient: Less than 30
[2016-07-21] MEDS ORDERED: ALPRAZolam 0.25 MG TAB PO PRN (15:21)
[2016-07-21] MEDS: methylPREDNISolone 4 MG TAB TAPER PO SCH (15:40)
[2016-07-21] MEDS: SODIUM CHLORIDE 0.9% 1,000 ML IV SCH (16:53)
--- NOTE | 2016-07-21 17:50 | PN ---
DATE OF SERVICE: 07/21/2016 This 45-year-old woman was admitted with recent pneumonia, also had a parapneumonic effusion also. The patient appears to be steadily improving. Dr. Abdul is recommending repeat chest x-ray tomorrow to decide the extent of pleural effusion and decide on the further plans regarding thoracocentesis. No chest or palpitation. No fever. Patient is using incentive spirometer. On exam, alert and oriented x3. Pulse is 70, blood pressure 150/93, respirations 16, temperature 98.1, pulse ox 93% on 1 L. HEENT: Conjunctivae are normal, oral mucosa moist. Neck is no jugular venous distension, no carotid bruit, no lymph node enlargement. CARDIOVASCULAR: S1, S2, muffled. RESPIRATORY: Breath sounds diminished at bases, suspicion of the left lower quadrant, a few scattered rhonchi, no crackles. ABDOMEN: Soft, nontender. No mass palpable. EXTREMITIES: Legs no edema, no swelling. NERVOUS SYSTEM: No focal deficits. LABS: WBC is 9.8, hemoglobin is 10.5, Sodium 140, potassium 4.4. ASSESSMENT: 1. Recent pneumonia with possible parapneumonic effusion with possible community-acquired with loculated pleural effusion as well as middle lobe consolidation present on admission. 2. Bilateral atelectasis, pulmonary embolism ruled out. 3. Hypothyroidism. 4. Hyperlipidemia. 5. History of nicotine dependence. 6. Morbid obesity with a body mass index of 38.2. 7. Mild hypoalbuminemia. 8. FULL CODE. RECOMMENDATION: Recommend to continue with the current medication. Continue with the monitoring and symptomatic treatment. Otherwise, at this time I would recommend to follow the patient closely. Otherwise, repeat labs, repeat chest x-ray for pneumonia and continue with antibiotics. Guarded prognosis. Further recommendations to follow.
[2016-07-21] MEDS: PRAVASTATIN SODIUM 80 MG TAB PO SCH (23:15)
[2016-07-22] MEDS: HEPARIN SODIUM,PORCINE 5,000 UNIT/ML 1 ML VIAL SQ SCH ×3 (00:47→16:03)
[2016-07-22] MEDS: LEVOTHYROXINE 100 MCG TAB PO SCH (06:20)
[2016-07-22] MEDS: LEVOTHYROXINE 50 MCG TAB PO SCH (06:20)
[2016-07-22 07:33] LABS: Basophils % (A) 0 %; CH 30.4; CHCM 32.6; Eosinophils # (A) 0.1 k/uL (0-0.7); Eosinophils % (A) 1 %; HCT 34.3 % (34.0-46.0); HDW 2.46; HGB 11.3 gm/dL (11.4-16.0); Luc # (Auto) 0.14; Luc % (Auto) 1; Lymphocytes # (A) 3.2 k/uL (1.0-4.8); Lymphocytes % (A) 30 %; MCH 30.8 pg (25.0-35.0); MCHC 32.9 g/dL (31.0-37.0); MCV 93.7 fL (80.0-100.0); Mean Platelet Volume 7.9; Monocytes # (A) 0.7 k/uL (0-1.0); Monocytes % (A) 6 %; Neutrophils # (A) 6.4 k/uL (1.3-7.7); Neutrophils % (A) 61 %; RBC 3.66 m/uL (3.80-5.40); RDW 12.5 % (11.5-15.5); WBC 10.5 k/uL (3.8-10.6); WBC (Perox) 10.63
[2016-07-22] MEDS: IPRATROPIUM-ALBUTEROL 3 ML NEB INHALATION SCH ×3 (07:46→16:48)
[2016-07-22 07:51] LABS: Anion Gap 9 mmol/L; Blood Urea Nitrogen 15 mg/dL (7-17); Calcium 8.5 mg/dL (8.4-10.2); Carbon Dioxide 28 mmol/L (22-30); Chloride 105 mmol/L (98-107); Glucose 81 mg/dL (74-99); Non-African American GFR(MDRD) >60 (>60 ml/min/1.73 sqM); Potassium 4.2 mmol/L (3.5-5.1); Sodium 142 mmol/L (137-145)
[2016-07-22] MEDS: methylPREDNISolone 4 MG TAB TAPER PO SCH (08:54)
[2016-07-22] MEDS: AZITHROMYCIN 500 MG TAB PO SCH (09:04)
[2016-07-22] MEDS: DOCUSATE 100 MG CAP PO SCH (09:05)
--- NOTE | 2016-07-22 10:14 | XR ---
EXAMINATION TYPE: XR chest 2V DATE OF EXAM: 07/22/2016 7:18 AM COMPARISON: 07/20/2016 HISTORY: Pneumonia FINDINGS: There is persistent bilateral infiltrate and small effusion greater on the right. Heart is enlarged b ut stable. No pneumothorax. Interstitium unchanged. IMPRESSION: 1. Bilateral infiltrate and pleural effusion stable.
--- NOTE | 2016-07-22 12:15 | US ---
EXAMINATION TYPE: US chest DATE OF EXAM: 07/22/2016 11:55 AM COMPARISON: NONE CLINICAL HISTORY: F/U ON RT PLEURAL EFFUSION. EXAM MEASUREMENTS: Right Pleural Effusion fluid pocket: 3.0 cm Right skin to fluid thickness: 3.6 cm Right side not marked per 's order to [facility] only if pocket was bigger than previous for possible th oracentesis outside the dept. IMPRESSIONS: 1. Small right pleural effusion
--- NOTE | 2016-07-22 15:21 | P.PN ---
Subjective This is a very pleasant 45-year-old female who is been here in the hospital for about 7 or 8 days. She continues to improve. Could be discharged home today. No shortness of breath. No fever no chills. Occasional nonproductive cough. Chest x-ray was improved. Ultrasound showed a small amount of flow which was not marked. The patient's overall situation was most consistent with pleurisy pleuritis/ pleural effusion picture. Anyway the patient was placed on IV Solu-Medrol and seemed to improve. She can be discharged home on some on a Medrol Dosepak and some antibiotics. Again she's feeling much better. Objective - Vital Signs Vital signs: Vital Signs Temp 98.4 F 07/22/16 11:15 Pulse 80 07/22/16 12:19 Resp 16 07/22/16 11:15 BP 139/81 07/22/16 11:15 Pulse Ox 94 L 07/22/16 11:15 Intake & Output 07/21/16 07/22/16 07/22/16 18:59 06:59 18:59 Intake Total 700 800 Balance 700 800 Weight 79.9 kg Intake: Oral 700 800 Other: # Voids 1 2 - Exam No acute distress, oriented 3. HEENT examination is grossly unremarkable. Mucous membranes are moist. No oral lesions. Supple. Full range of motion. Cardiovascular examination reveals regular rhythm rate. S1-S2 normal. Lungs reveal relatively clear breath sounds. Maybe a few scattered minimal basilar crackles. Not much to speak of. No rhonchi. No wheezes. Abdomen soft bowel sounds are heard. Extremities are intact. - Labs CBC & Chem 7: 07/22/16 06:42 07/22/16 06:42 Labs: Abnormal Lab Results - Last 24 Hours (Table) 07/22/16 Range/Units 06:42 RBC 3.66 L (3.80-5.40) m/uL Hgb 11.3 L (11.4-16.0) gm/dL Microbiology - Last 24 Hours (Table) 07/15/16 16:15 Blood Culture - Final Blood No Growth after 144 hours Assessment and Plan (1) Pleuritis Status: Acute (2) Pleural effusion Status: Acute (3) Pleurisy with effusion Status: Acute Plan: Plan The patient could be discharged home. Dr. Hilton pointed out to be discharged home on a Medrol Dosepak and some oral antibiotics. The patient can follow-up with Dr. Hilton in the office. No discharge recommendations are made. We'll continue to follow closely. Time with Patient: Less than 30
[2016-07-22] MEDS: SODIUM CHLORIDE 0.9% 1,000 ML IV SCH (16:10)
[2016-07-22 16:23] VITALS: BP 126/74; RESP 16; TEMP 97.6
[2016-07-22 17:00] VITALS: PULSE 76
[2016-07-23] MEDS ORDERED: methylPREDNISolone 4 MG TAB TAPER PO SCH (09:00)
--- NOTE | 2016-07-23 13:49 | DS ---
DATE OF ADMISSION: 07/15/2016 DATE OF DISCHARGE: 07/22/2016 DATE OF SERVICE: 07/22/2016 FINAL DIAGNOSES: 1. Right lower pneumonia with possible parapneumonic effusion with possible community-acquired pneumonia, with loculated pleural effusion as well as middle lobe consolidation present on admission. 2. Bilateral atelectasis, pulmonary embolism ruled out. 3. Hypothyroidism. 4. Hyperlipidemia. 5. History of nicotine dependence. 6. Obesity with a body mass index of 38.2. 7. Mild hypoalbuminemia. 8. Reactive bronchospasm. 9. FULL CODE. DISCHARGE DISPOSITION: The patient will be discharged in a stable condition with guarded prognosis. HISTORY OF PRESENT ILLNESS: This 45-year-old woman with a past medical history of multiple medical problems was admitted with features of pneumonia, mainly on the right lower lobe. The patient initially had lower chest pain and upper abdominal pain. The patient was also found to have parapneumonic effusion, treated in conjunction with Dr. Abdul and the patient had multiple evaluations. The patient also seen by Dr. Reyes in the beginning of the hospital stay to rule out any acute surgical conditions. Otherwise, the patient was treated as a pneumonia and parapneumonic effusion and multiple ultrasounds were done and Dr. Escalona and Dr. Abdul thought that the patient is improving gradually and thoracocentesis not needed at this time. The diagnosis and progress plans were discussed with the patient at length and the patient is stable currently. On exam, vitals are stable. CARDIOVASCULAR SYSTEM: S1, S2 muffled. RESPIRATORY: Breath sounds diminished in the right side. A few rhonchi. ABDOMEN: Soft, nontender. The patient will be discharged in a stable condition with the following advice. 1. Diet is cardiac. 2. Activity limited until followup. 3. Follow up with Dr. Abdul in 1 week. 4. Follow up with Dr. Ocasio in 1 to 2 days. The medications are: 1. Xanax 0.5 daily p.r.n. 2. Zithromax 500 mg daily for 10 days. 3. Ceftin 500 mg p.o. b.i.d. for 10 days. 4. Flexeril 5 mg t.i.d. p.r.n. 5. Hydrocodone 1 tablet q.6 p.r.n. 6. Albuterol, Atrovent updrafts q.i.d. and p.r.n. 7. Synthroid 150 mcg p.o. daily. 8. Multivitamin 1 p.o. daily. 9. Pravachol 80 mg q.h.s. 10. Medrol Dosepak. Once again, the patient will be discharged in a stable condition with guarded prognosis.
== END 2016-07-22 18:18 | disposition home or self-care (01) | DRG 194 ==
LOC: EC 19:20 → 6PED 07-15 01:27
PROVIDERS: ADMIT Internal Medicine; ATTEND Internal Medicine
DX: J18.9 Pneumonia, unspecified organism (principal); J90 Pleural effusion, not elsewhere classified; J98.11 Atelectasis; J98.01 Acute bronchospasm; E03.9 Hypothyroidism, unspecified; E88.09 Other disorders of plasma-protein metabolism, not elsewhere classified; R09.02 Hypoxemia; R11.0 Nausea; D72.829 Elevated white blood cell count, unspecified; M25.519 Pain in unspecified shoulder; M54.9 Dorsalgia, unspecified; K82.8 Other specified diseases of gallbladder; R50.9 Fever, unspecified; R10.11 Right upper quadrant pain; E78.5 Hyperlipidemia, unspecified; Z87.891 Personal history of nicotine dependence; Z81.8 Family history of other mental and behavioral disorders; Z82.49 Family history of ischemic heart disease and other diseases of the circulatory system; Z83.3 Family history of diabetes mellitus; Z79.899 Other long term (current) drug therapy; Z79.891 Long term (current) use of opiate analgesic
CPT/HCPCS: 36415; 71010; 71020; 71275; 74000; 74176; 76604; 76705; 78227; 80048; 80053; 81001; 81025; 82150; 83605; 83690; 84443; 84484; 85025; 85379; 85610; 85652; 85730; 87040; 87086; 87502; 93005; 94640; 94760; 96361; 96374; 96375; 96376; 99284; 99285

== ENCOUNTER → 2017-08-18 | Outpatient (CLI) | payer BC ==
--- NOTE | 2017-08-20 07:34 | MM ---
Reason for exam: screening (asymptomatic). Last mammogram was performed 1 year and 3 months ago. History: Family history of breast cancer in maternal grandmother at age 60. Excisional biopsy of the left breast, 2003. Benign excisional biopsy, March 29, 2002. Benign cyst aspiration of the left breast. Took hormonal contraceptives for 11 years beginning at age 22. Took unspecified hormones for 6 years beginning at age 29. Physical Findings: A clinical breast exam by your physician is recommended on an annual basis and results should be correlated with mammographic findings. MG Screening Mammo w CAD Bilateral CC and MLO view(s) were taken. Prior study comparison: May 16, 2016, right breast MG work up mamm w CAD RT. May 04, 2016, bilateral MG screening mammo w CAD. The breast tissue is heterogeneously dense. This may lower the sensitivity of mammography. Small microcalcifications laterally on the right are stable from 2016. Superior left breast asymmetric density is more defined. Summation shadow is possible. ASSESSMENT: Incomplete: need additional imaging evaluation, BI-RAD 0 RECOMMENDATION: Special view mammogram of the left breast. If lesion persists on supplemental views, image directed ultrasound is recommended. [facility] will attempt to contact patient to return for supplemental views and ultrasound if indicated.
== END | disposition home or self-care (01) ==
LOC: RADMAMWWP 09:19
PROVIDERS: ATTEND Obstetrics & Gynecology
DX: Z12.31 Encounter for screening mammogram for malignant neoplasm of breast (principal)
CPT/HCPCS: 77067

== ENCOUNTER → 2017-08-29 | Outpatient (CLI) | payer BC ==
--- NOTE | 2017-09-01 07:35 | MM ---
Reason for exam: additional evaluation requested from abnormal screening. Last mammogram was performed less than 1 month ago. History: Patient is postmenopausal. Family history of breast cancer in maternal grandmother at age 60. Excisional biopsy of the left breast, 2003. Benign excisional biopsy, March 29, 2002. Benign cyst aspiration of the left breast. Took hormonal contraceptives for 11 years beginning at age 22. Took unspecified hormones for 6 years beginning at age 29. Physical Findings: Nurse Summary: 1 x 1cm nodule in the left breast at 10 o'clock scar (nurse ts). MG Work Up Mamm w CAD LT LM and spot compression MLO view(s) were taken of the left breast. Prior study comparison: August 18, 2017, bilateral MG screening mammo w CAD. May 16, 2016, right breast MG work up mamm w CAD RT. The breast tissue is heterogeneously dense. This may lower the sensitivity of mammography. No significant new findings when compared with previous films. These results were verbally communicated with the patient and result sheet given to the patient on 08/29/17. ASSESSMENT: Benign, BI-RAD 2 RECOMMENDATION: Return to routine screening mammogram schedule for both breasts.
== END | disposition home or self-care (01) ==
LOC: RADMAMWWP 14:23
PROVIDERS: ATTEND Obstetrics & Gynecology
DX: R92.8 Other abnormal and inconclusive findings on diagnostic imaging of breast (principal)
CPT/HCPCS: 77065

== ENCOUNTER → 2018-05-20 | Outpatient (CLI) | payer BC ==
[2018-05-20 11:30] LABS: Basophils % (A) 1 %; Eosinophils # (A) 0.2 k/uL (0-0.7); Eosinophils % (A) 6 %; HCT 42.4 % (34.0-46.0); Lymphocytes # (A) 1.9 k/uL (1.0-4.8); Lymphocytes % (A) 45 %; MCHC 32.9 g/dL (31.0-37.0); Mean Platelet Volume 8.4; Monocytes # (A) 0.3 k/uL (0-1.0); Monocytes % (A) 7 %; Neutrophils # (A) 1.7 k/uL (1.3-7.7); Neutrophils % (A) 40 %; Platelet Count 168 k/uL (150-450); RBC 4.51 m/uL (3.80-5.40); RDW 12.2 % (11.5-15.5); WBC 4.1 k/uL (3.8-10.6)
[2018-05-20 18:14] LABS: Hemoglobin A1C 5.8 % (4.0-6.0)
== END | disposition home or self-care (01) ==
LOC: LABWHC1 10:28
PROVIDERS: ATTEND Internal Medicine Infectious Disease
DX: A49.01 Methicillin susceptible Staphylococcus aureus infection, unspecified site (principal)
CPT/HCPCS: 36415; 82784; 83036; 85025

== ENCOUNTER → 2018-12-07 | Outpatient (CLI) | payer BC ==
--- NOTE | 2018-12-09 09:16 | MM ---
Reason for exam: screening (asymptomatic). Last mammogram was performed 1 year and 3 months ago. History: Patient is postmenopausal. Family history of breast cancer in maternal grandmother at age 60. Excisional biopsy of the left breast, 2003. Benign excisional biopsy, March 29, 2002. Benign cyst aspiration of the left breast. Took hormonal contraceptives for 11 years beginning at age 22. Took unspecified hormones for 6 years beginning at age 29. Physical Findings: A clinical breast exam by your physician is recommended on an annual basis and results should be correlated with mammographic findings. MG 3D Screening Mammo W/Cad Bilateral CC and MLO view(s) were taken. Prior study comparison: August 29, 2017, left breast MG work up mamm w CAD LT. August 18, 2017, bilateral MG screening mammo w CAD. The breast tissue is heterogeneously dense. This may lower the sensitivity of mammography. Finding: There are a few typically benign round calcifications in both breasts. No discrete abnormality. ASSESSMENT: Benign, BI-RAD 2 RECOMMENDATION: Routine screening mammogram of both breasts in 1 year.
== END | disposition home or self-care (01) ==
LOC: RADMAMWWP 09:35
PROVIDERS: ATTEND Obstetrics & Gynecology
DX: Z12.31 Encounter for screening mammogram for malignant neoplasm of breast (principal)
CPT/HCPCS: 77063; 77067

== ENCOUNTER → 2020-01-12 | Outpatient (CLI) | payer BC ==
--- NOTE | 2020-01-13 11:12 | MM ---
Reason for exam: screening (asymptomatic). Last mammogram was performed 1 year and 1 month ago. History: Patient is postmenopausal. Family history of breast cancer in maternal grandmother at age 60. Excisional biopsy of the left breast, 2003. Benign excisional biopsy, March 29, 2002. Benign cyst aspiration of the left breast. Took hormonal contraceptives for 11 years beginning at age 22. Took unspecified hormones for 6 years beginning at age 29. Physical Findings: A clinical breast exam by your physician is recommended on an annual basis and results should be correlated with mammographic findings. MG 3D Screening Mammo W/Cad Bilateral CC and MLO view(s) were taken. Prior study comparison: December 07, 2018, bilateral MG 3d screening mammo w/cad. May 04, 2016, bilateral MG screening mammo w CAD. April 01, 2015, bilateral MG screening mammo w CAD. The breast tissue is heterogeneously dense. This may lower the sensitivity of mammography. No significant changes when compared with prior studies. ASSESSMENT: Negative, BI-RAD 1 RECOMMENDATION: Routine screening mammogram of both breasts in 1 year.
== END | disposition home or self-care (01) ==
LOC: RADMAMWWP 15:49
PROVIDERS: ATTEND Obstetrics & Gynecology
DX: Z12.31 Encounter for screening mammogram for malignant neoplasm of breast (principal)
CPT/HCPCS: 77063; 77067

== ENCOUNTER → 2020-02-01 | Outpatient (CLI) | payer BC ==
--- NOTE | 2020-02-01 15:16 | US ---
EXAMINATION TYPE: US thyroid st tissue head/neck DATE OF EXAM: 02/01/2020 COMPARISON: NONE CLINICAL HISTORY: E03.9 HYPOTHYROIDISM. Hypothyroidism, patient on thyroid meds GLAND SIZE: Right Lobe: 2.9 x 0.6 x 0.8 cm Overall Parenchyma: homogenous Left Lobe: 3.3 x 0.6 x 0.7 cm Overall Parenchyma: homogeneous Isthmus Thickness: 0.1 cm NODULES RIGHT: # of nodules measured on right: 0 LEFT: # of nodules measured on left: 0 ISTHMUS: # of nodules measured in the isthmus: 0 Bilateral neck scanned, no evidence of lymphadenopathy. IMPRESSION: No distinct abnormality appreciated.
== END | disposition home or self-care (01) ==
LOC: RADUSWWP 14:38
PROVIDERS: ATTEND Family Medicine
DX: E03.9 Hypothyroidism, unspecified (principal)
CPT/HCPCS: 76536

== ENCOUNTER → 2020-05-10 | Outpatient (CLI) | payer BC ==
--- NOTE | 2020-05-11 05:52 | BD ---
EXAMINATION TYPE: Axial Bone Density DATE OF EXAM: 05/10/2020 COMPARISON: NONE CLINICAL HISTORY: Postmenopausal screening Height: 61.7 IN Weight: 171 LBS RISK FACTORS HISTORY OF: History of Wrist Fracture: LT WRIST AGE 9 Active: YES Postmenopausal woman: AGE 46 Take estrogen and/or progesterone medications: PREVIOUSLY TOOK CONTROL FOR 10 YEARS MEDICATIONS: Thyroid Medications: YES Which medication: Levothyroxine How Lon YEARS Additional Medications: VIT D, LEVOTHYROXINE, CHOLESTEROL MEDS, ANTI DEPRESSANT EXAM MEASUREMENTS: Bone mineral densitometry was performed using the [employer] System. Bone mineral density as measured about the Lumbar spine is: ----- L1-L4(G/cm2): 1.303 T Score Values are as follows: ----- L2: 1.2 ----- L3: 2.2 ----- L4: 1.0 ----- L1-L4: 1.0 Bone mineral density BASELINE Bone mineral density about the R hip (g/cm2): 0.971 Bone mineral density about the L hip (g/cm2): 0.925 T Score values are as follows: -----R Neck: -0.5 -----L Neck: -0.8 -----R Total: -0.2 -----L Total: -0.3 Bone mineral density BASELINE IMPRESSION: Normal (Values between +1 and -1 indicate normal bone mass). Consider repeating this study in 5 year s or sooner if there is some new clinical indication. NOTE: T-SCORE=SD OF THE YOUNG ADULT MEAN.
== END | disposition home or self-care (01) ==
LOC: RADBDWWP 16:20
PROVIDERS: ATTEND Obstetrics & Gynecology
DX: N95.1 Menopausal and female climacteric states (principal)
CPT/HCPCS: 77080

== ENCOUNTER → 2021-03-01 | Outpatient (CLI) | payer BC ==
--- NOTE | 2021-03-01 12:27 | XR ---
EXAMINATION TYPE: XR chest 2V DATE OF EXAM: 03/01/2021 COMPARISON: Chest x-ray dated 07/22/2016, chest CT 07/16/2016 HISTORY: R05, cough, history Covid pneumonia TECHNIQUE: Frontal and lateral views of the chest are obtained. FINDINGS: There is some improved aeration as compared to prior exam. No evident pneumothorax. There is elevation of right hemidiaphragm. Heart size appears prominently as on prior exam. No evident effu luz marina. Thoracic spondylosis is present. Calcified mediastinal nodes are present. IMPRESSION: There is interval improved aeration as compared to prior exam.
== END | disposition home or self-care (01) ==
LOC: RADXRYALE 09:57
PROVIDERS: ATTEND Physician Assistant Medical
DX: R05 Cough (principal); Z86.16 Personal history of COVID-19
CPT/HCPCS: 71046

== ENCOUNTER → 2021-07-13 | Outpatient (CLI) | payer BC ==
--- NOTE | 2021-07-16 13:54 | MM ---
Reason for exam: screening (asymptomatic). Last mammogram was performed 1 year and 6 months ago. History: Patient is postmenopausal and history of other cancer. Family history of breast cancer in maternal grandmother at age 60. Excisional biopsy of the left breast, 2003. Benign excisional biopsy, March 29, 2002. Benign cyst aspiration of the left breast. Took hormonal contraceptives for 11 years beginning at age 22. Took unspecified hormones for 6 years beginning at age 29. Physical Findings: A clinical breast exam by your physician is recommended on an annual basis and results should be correlated with mammographic findings. MG 3D Screening Mammo W/Cad Bilateral CC and MLO view(s) were taken. Prior study comparison: January 12, 2020, bilateral MG 3d screening mammo w/cad. December 07, 2018, bilateral MG 3d screening mammo w/cad. The breast tissue is heterogeneously dense. This may lower the sensitivity of mammography. No significant changes when compared with prior studies. ASSESSMENT: Benign, BI-RAD 2 RECOMMENDATION: Routine screening mammogram of both breasts in 1 year.
== END | disposition home or self-care (01) ==
LOC: RADMAMWWP 16:25
PROVIDERS: ATTEND Obstetrics & Gynecology
DX: Z12.31 Encounter for screening mammogram for malignant neoplasm of breast (principal); Z78.0 Asymptomatic menopausal state; Z80.3 Family history of malignant neoplasm of breast
CPT/HCPCS: 77063; 77067

== ENCOUNTER → 2022-07-15 | Outpatient (CLI) | payer BC ==
--- NOTE | 2022-07-16 20:54 | MM ---
Reason for Exam: Screening (asymptomatic). Last screening mammogram was performed 12 month(s) ago. Patient History: Menarche at age 10. First Full-Term at age 27. Postmenopausal. Other cancer. Hormonal Contraceptives for 11 years from age 22 until age 33. Unspecified Hormone for 6 years from age 29 until age 35. Benign Cyst Aspiration on the left side. 2003, Excisional Biopsy on the Left side. Benign Excisional Biopsy. Maternal grandmother had breast cancer, age 60. Risk Values: Echo 5 year model risk: 1.9%. NCI Lifetime model risk: 15.3%. Prior Study Comparison: 12/07/2018 Bilateral Screening Mammogram, [facility]. 01/12/2020 Bilateral Screening Mammogram, [facility]. 07/13/2021 Bilateral Screening Mammogram, [facility]. Tissue Density: The breast tissue is heterogeneously dense. This may lower the sensitivity of mammography. Findings: Analyzed By CAD. Underlying partially obscured elongated nodularity medial right breast was present on the exam. Unchanged asymmetric density superior right MLO view middle to posterior depth. No significant change from prior exams. Overall Assessment: Benign, BI-RAD 2 Management: Screening Mammogram of both breasts in 1 year. 1. Patient should continue monthly self breast exams. 2. A clinical breast exam by your physician is recommended on an annual basis. 3. This exam should not preclude additional follow-up of suspicious palpable abnormalities. Electronically signed and approved by: Jessica Mendoza M.D. Radiologist
== END | disposition home or self-care (01) ==
LOC: RADMAMWWP 16:48
PROVIDERS: ATTEND Obstetrics & Gynecology
DX: Z12.31 Encounter for screening mammogram for malignant neoplasm of breast (principal); Z78.0 Asymptomatic menopausal state; Z80.3 Family history of malignant neoplasm of breast
CPT/HCPCS: 77063; 77067

== ENCOUNTER → 2023-08-04 | Outpatient (CLI) | payer BC ==
--- NOTE | 2023-08-06 08:19 | MM ---
Reason for Exam: Screening (asymptomatic). Last mammogram was performed 1 year(s) and 1 month(s) ago. Patient History: Menarche at age 10. First Full-Term at age 27. Postmenopausal. Other cancer. Hormonal Contraceptives for 11 years from age 22 until age 33. Unspecified Hormone for 6 years from age 29 until age 35. Benign Cyst Aspiration on the left side. 2003, Excisional Biopsy on the Left side. Benign Excisional Biopsy. Maternal grandmother had breast cancer, age 60. Risk Values: Echo 5 year model risk: 2.0%. NCI Lifetime model risk: 15.0%. Prior Study Comparison: 01/12/2020 Bilateral Screening Mammogram, [facility]. 07/13/2021 Bilateral Screening Mammogram, [facility]. 07/15/2022 Bilateral MG 3D screening mammo w/cad, [facility]. Tissue Density: The breast tissue is heterogeneously dense. This may lower the sensitivity of mammography. Findings: Analyzed By CAD. There is no suspicious group of microcalcifications or new suspicious mass. Overall Assessment: Negative, BI-RAD 1 Management: Screening Mammogram of both breasts in [address] [facility] will attempt to contact patient to return for supplemental views and ultrasound if indicated. Patient should continue monthly self-breast exams. A clinical breast exam by your physician is recommended on an annual basis. This exam should not preclude additional follow-up of suspicious palpable abnormalities. Note on Echo scores and lifetime risk: 1. A Echo score greater than 3% is considered moderate risk. If this is the case, consider specialist referral to assess eligibility for a risk reducing agent. 2. If overall lifetime risk for the development of breast cancer is 20% or higher, the patient may qualify for future screening with alternating mammogram and breast MRI. Electronically signed and approved by: Jorge Jones DO
== END | disposition home or self-care (01) ==
LOC: RADMAMWWP 16:35
PROVIDERS: ATTEND Obstetrics & Gynecology
DX: Z12.31 Encounter for screening mammogram for malignant neoplasm of breast (principal); Z80.3 Family history of malignant neoplasm of breast; Z78.0 Asymptomatic menopausal state
CPT/HCPCS: 77063; 77067